=== PATIENT | female | born 1995 | race Caucasian/White ===

== ENCOUNTER 2018-04-08 16:05 | Emergency (ER) | payer SELFPAY ==
[~2018-04-08] VITALS: Ht 172.7 cm; Wt 65.8 kg
[2018-04-08 16:05] VITALS: BP 101/60
[~2018-04-08 16:05] MED LIST: ALPR1TAB2 PO; BUPR75TA5 PO
--- NOTE | 2018-04-08 16:25 | PHYS DOC ---
Past History Past Medical History: Anxiety Past Surgical History: No Surgical History Alcohol Use: Rarely Drug Use: None Adult General Chief Complaint Chief Complaint: Toothache HPI HPI 22-year-old female presents with swollen left side of her face. The patient has had a known cracked tooth in the left lower quadrant more than a year. Yesterday , the area began to bother her more. When she woke up this morning, left lower face had swollen significantly. She has increased tenderness to her gums in that area. She denies fever or chills. He does not currently have dental insurance. Review of Systems Review of Systems Constitutional: Denies fever or chills [] Eyes: Denies change in visual acuity, redness, or eye pain [] HENT: Left-sided dental pain[] Respiratory: Denies cough or shortness of breath [] Cardiovascular: No additional information not addressed in HPI [] GI: Denies abdominal pain, nausea, vomiting, bloody stools or diarrhea [] : Denies dysuria or hematuria [] Musculoskeletal: Denies back pain or joint pain [] Integument: Denies rash or skin lesions [] Neurologic: Denies headache, focal weakness or sensory changes [] Endocrine: Denies polyuria or polydipsia [] All other systems were reviewed and found to be within normal limits, except as documented in this note. Allergies Allergies Allergies Coded Allergies Type Severity Reaction Last Updated Verified No Known Drug Allergies 11/20/16 No Physical Exam Physical Exam Constitutional: Well developed, well nourished, no acute distress, non-toxic appearance. [] HENT: Normocephalic, atraumatic, bilateral external ears normal, oropharynx moist, no oral exudates, nose normal. Erythema of the left lower gums and cheek. No obvious area of fluctuance to be drained. [] Eyes: PERRLA, EOMI, conjunctiva normal, no discharge. [] Neck: Normal range of motion, no tenderness, supple, no stridor. [] Cardiovascular:Heart rate regular rhythm, no murmur [] Lungs & Thorax: Bilateral breath sounds clear to auscultation [] Abdomen: Bowel sounds normal, soft, no tenderness, no masses, no pulsatile masses. [] Skin: Warm, dry, no erythema, no rash. [] Back: No tenderness, no CVA tenderness. [] Extremities: No tenderness, no cyanosis, no clubbing, ROM intact, no edema. [] Neurologic: Alert and oriented X 3, normal motor function, normal sensory function, no focal deficits noted. [] Psychologic: Affect normal, judgement normal, mood normal. [] Current Patient Data Vital Signs Vital Signs Date Time Temp Pulse Resp B/P (MAP) Pulse Ox O2 Delivery O2 Flow Rate FiO2 04/08/18 16:05 97.5 77 18 100 EKG EKG [] Radiology/Procedures Radiology/Procedures [] Course & Med Decision Making Course & Med Decision Making Pertinent Labs and Imaging studies reviewed. (See chart for details) The patient has an infected tooth. I advised that she make an appointment as soon as possible to have her move as this is the only definitive treatment. I will give her clindamycin for 1 week. [] Dragon Disclaimer Dragon Disclaimer This electronic medical record was generated, in whole or in part, using a voice recognition dictation system. Departure Departure: Referrals: MARIBEL BONILLA MD (PCP) SAE AGARWAL DO Apr 08, 2018 16:25
[2018-04-08] MEDS ORDERED: CLIN300C8 PO (16:27)
== END 2018-04-08 16:30 | disposition home or self-care (01) ==
LOC: ER 16:05
DX: K04.7 Periapical abscess without sinus (principal); F41.9 Anxiety disorder, unspecified
CPT/HCPCS: 99283

== ENCOUNTER 2019-07-29 10:28 | Emergency (ER) | payer SELFPAY ==
[~2019-07-29] VITALS: Ht 172.7 cm; Wt 68.0 kg
[~2019-07-29 10:28] MED LIST changes: +CLIN300C8 PO
[2019-07-29] MEDS ORDERED: IV NORMAL SALINE 1,000ML 1,000 ML IV ONE (10:45)
--- NOTE | 2019-07-29 11:06 | RAD ---
CT HEAD WO CONTRAST Date: 07/29/2019 10:40 AM Clinical Indication: Altered mental status, history of seizure Comparison: 11/20/2016. Technique: 5 mm axial tomographic images were obtained of the head without contrast. These were viewed on brain and bone windows. One or more of the following dose reduction techniques were utilized: Automated exposure control (AEC), Adjustment of mA and/or kV according to patient size, Use of iterative reconstruction technique such as ASiR, CT scan done according to ALARA and image gently/image wisely Findings: The brain parenchyma is normal in attenuation. No intra- or extra-axial mass or fluid collection. No acute hemorrhage. The ventricles are normal in size, shape, and morphology. The faustin-white matter junction is normal. The subarachnoid cisterns are patent. The visualized paranasal sinuses are normal. The visualized portions of the orbits and globes are normal. The mastoid air cells are clear. The oil pipeline dispatcher topogram shows no lytic lesion or fracture. Impression: No acute intracranial process. Electronically signed by: Prashant Garcia MD (07/29/2019 11:03 AM) [facility]
[2019-07-29 11:07] VITALS: BP 157/87
[2019-07-29 11:12] LABS: BASO % 0 % (0-3); EOS % 1 % (0-3); HEMATOCRIT 39.7 % (36.0-47.0); HEMOGLOBIN 13.4 g/dL (12.0-15.5); LYMPH # 1.8 x10^3/uL (1.0-4.8); LYMPH % 27 % (24-48); MEAN CORPUSCULAR HEMOGLOBIN 30 pg (25-35); MEAN CORPUSCULAR HGB CONC 34 g/dL (31-37); MEAN CORPUSCULAR VOLUME 90 fL (79-100); MONO # 0.5 x10^3/uL (0.0-1.1); MONO % 7 % (0-9); NEUT # 4.4 x10^3uL (1.8-7.7); NEUT % 66 % (31-73); PLATELET COUNT 236 x10^3/uL (140-400); RED BLOOD COUNT 4.43 x10^6/uL (3.50-5.40); WHITE BLOOD COUNT 6.7 x10^3/uL (4.0-11.0)
[2019-07-29 11:20] LABS: ALBUMIN 3.5 g/dL (3.4-5.0); ALBUMIN/GLOBULIN RATIO 0.9 (1.0-1.7); CREATININE 0.7 mg/dL (0.6-1.0); GFR 101.1; POTASSIUM 3.7 mmol/L (3.5-5.1); TOTAL BILIRUBIN 0.3 mg/dL (0.2-1.0); TOTAL PROTEIN 7.2 g/dL (6.4-8.2)
[2019-07-29 11:24] LABS: BARBITURATES NEG (NEG); BENZODIAZEPINES NEG (NEG); CANNABINOIDS POS (NEG); COCAINE NEG (NEG); METHADONE NEG (NEG); OPIATES NEG (NEG); PHENCYCLIDINE NEG (NEG)
[2019-07-29 11:25] LABS: AMPHETAMINE/METHAMPHETAMINE POS (NEG)
[2019-07-29 11:54] LABS: BACTERIA,URINE 0 /HPF (0-FEW); BILIRUBIN,URINE NEG (NEG); CLARITY,URINE HAZY; COLOR,URINE AMBER; GLUCOSE,URINE NEG (NEG); NITRITE,URINE NEG (NEG); RBC,URINE 0 /HPF (0-2); SQUAMOUS EPITHELIAL CELL,UR OCC /LPF; UROBILINOGEN,URINE 0.2 mg/dL (0.2 mg/dL); WBC,URINE 0 /HPF (0-4)
[2019-07-29 11:55] LABS: AMORPHOUS SEDIMENT,UR PRESENT /HPF
--- NOTE | 2019-07-29 15:16 | PHYS DOC ---
Past History Past Medical History: Anxiety Past Surgical History: No Surgical History Alcohol Use: Rarely Drug Use: None Adult General Chief Complaint Chief Complaint: ANXIETY/PANIC ATTACK HPI HPI Patient is a 24-year-old female presenting with anxiety. She was with her acquaintances I believe a sister and [id number] she was outside apparently smoking cigarettes according to their report she denies drug use to me began to have acute anxiety was hyperventilating and saying help me help me they thought she might be having a stroke so they brought her to the ER for evaluation. They were able to calm her down before she came here. Review of Systems Review of Systems Constitutional: Denies fever or chills [] Eyes: Denies change in visual acuity, redness, or eye pain [] HENT: Denies nasal congestion or sore throat [] Respiratory: Denies cough or shortness of breath [] Cardiovascular: No additional information not addressed in HPI [] GI: Denies abdominal pain, nausea, vomiting, bloody stools or diarrhea [] : Denies dysuria or hematuria [] All other systems were reviewed and found to be within normal limits, except as documented in this note. Current Medications Current Medications Current Medications Medications (Trade) Dose Ordered Sig/Marcy Start Time Stop Time Status Last Admin Dose Admin Lorazepam (Ativan Inj) 1 mg 1X ONCE 07/29/19 11:15 07/29/19 11:16 DC 07/29/19 11:00 1 MG Sodium Chloride 1,000 ml @ 1,000 mls/hr 1X ONCE 07/29/19 10:45 07/29/19 11:44 DC 07/29/19 11:00 1,000 MLS/HR Allergies Allergies Allergies Coded Allergies Type Severity Reaction Last Updated Verified No Known Drug Allergies 07/29/19 No Physical Exam Physical Exam Constitutional: Well developed, well nourished, mild distress HENT: Normocephalic, atraumatic, bilateral external ears normal, oropharynx moist, no oral exudates, nose normal. [] Eyes: PERRLA, EOMI, conjunctiva normal, no discharge. [] Neck: Normal range of motion, no tenderness, supple, no stridor. [] Cardiovascular: Tachycardia and no murmur Lungs & Thorax: Bilateral breath sounds clear to auscultation [] Abdomen: Bowel sounds normal, soft, no tenderness, no masses, no pulsatile masses. [] Skin: Multiple scabs and rashes throughout the skin Back: No tenderness, no CVA tenderness. [] Extremities: No tenderness, no cyanosis, no clubbing, ROM intact, no edema. [] Neurologic: Alert and oriented X 3, normal motor function, normal sensory f unction, no focal deficits noted. []Speech is normal Psychologic: Anxiety and hyper psychomotor agitation were noted Current Patient Data Vital Signs Vital Signs Date Time Temp Pulse Resp B/P (MAP) Pulse Ox O2 Delivery O2 Flow Rate FiO2 07/29/19 11:07 115 18 157/87 (110) 100 Room Air 07/29/19 10:40 98.7 Lab Results Laboratory Tests Test 07/29/19 10:34 07/29/19 10:48 07/29/19 10:59 Glucose (Fingerstick) 102 mg/dL (70-99) H White Blood Count 6.7 x10^3/uL (4.0-11.0) Red Blood Count 4.43 x10^6/uL (3.50-5.40) Hemoglobin 13.4 g/dL (12.0-15.5) Hematocrit 39.7 % (36.0-47.0) Mean Corpuscular Volume 90 fL (79-100) Mean Corpuscular Hemoglobin 30 pg (25-35) Mean Corpuscular Hemoglobin Concent 34 g/dL (31-37) Red Cell Distribution Width 13.0 % (11.5-14.5) Platelet Count 236 x10^3/uL (140-400) Neutrophils (%) (Auto) 66 % (31-73) Lymphocytes (%) (Auto) 27 % (24-48) Monocytes (%) (Auto) 7 % (0-9) Eosinophils (%) (Auto) 1 % (0-3) Basophils (%) (Auto) 0 % (0-3) Neutrophils # (Auto) 4.4 x10^3uL (1.8-7.7) Lymphocytes # (Auto) 1.8 x10^3/uL (1.0-4.8) Monocytes # (Auto) 0.5 x10^3/uL (0.0-1.1) Eosinophils # (Auto) 0.0 x10^3/uL (0.0-0.7) Basophils # (Auto) 0.0 x10^3/uL (0.0-0.2) Maternal Serum HCG Beta Subunit < 1 mIU/mL (0-6) Sodium Level 138 mmol/L (136-145) Potassium Level 3.7 mmol/L (3.5-5.1) Chloride Level 102 mmol/L (98-107) Carbon Dioxide Level 28 mmol/L (21-32) Anion Gap 8 (6-14) Blood Urea Nitrogen 8 mg/dL (7-20) Creatinine 0.7 mg/dL (0.6-1.0) Estimated GFR (Cockcroft-Gault) 101.1 BUN/Creatinine Ratio 11 (6-20) Glucose Level 123 mg/dL (70-99) H Calcium Level 9.0 mg/dL (8.5-10.1) Total Bilirubin 0.3 mg/dL (0.2-1.0) Aspartate Amino Transferase (AST) 49 U/L (15-37) H Alanine Aminotransferase (ALT) 71 U/L (14-59) H Alkaline Phosphatase 85 U/L (46-116) Total Protein 7.2 g/dL (6.4-8.2) Albumin 3.5 g/dL (3.4-5.0) Albumin/Globulin Ratio 0.9 (1.0-1.7) L Ethyl Alcohol Level < 10 mg/dL (0-10) Urine Collection Type Unknown Urine Color Francia Urine Clarity Hazy Urine pH 6.0 Urine Specific Mullin 1.025 Urine Protein 100 mg/dl (NEG-TRACE) Urine Glucose (UA) Neg mg/dL (NEG) Urine Ketones (Stick) Neg mg/dL (NEG) Urine Blood Neg (NEG) Urine Nitrite Neg (NEG) Urine Bilirubin Neg (NEG) Urine Urobilinogen Dipstick 0.2 mg/dL (0.2 mg/dL) Urine Leukocyte Esterase Neg (NEG) Urine RBC 0 /HPF (0-2) Urine WBC 0 /HPF (0-4) Urine Squamous Epithelial Cells Occ /LPF Urine Amorphous Sediment Present /HPF Urine Bacteria 0 /HPF (0-FEW) Urine Mucus Slight /LPF Urine Opiates Screen Neg (NEG) Urine Methadone Screen Neg (NEG) Urine Barbiturates Neg (NEG) Urine Phencyclidine Screen Neg (NEG) Urine Amphetamine/Methamphetamine Pos (NEG) Urine Benzodiazepines Screen Neg (NEG) Urine Cocaine Screen Neg (NEG) Urine Cannabinoids Screen Pos (NEG) Urine Ethyl Alcohol Neg (NEG) EKG EKG [] Radiology/Procedures Radiology/Procedures [] Impressions: Findings: The brain parenchyma is normal in attenuation. No intra- or extra-axial mass or fluid collection. No acute hemorrhage. The ventricles are normal in size, shape, and morphology. The faustin-white matter junction is normal. The subarachnoid cisterns are patent. The visualized paranasal sinuses are normal. The visualized portions of the orbits and globes are normal. The mastoid air cells are clear. The lead vulcanizing operator topogram shows no lytic lesion or fracture. Impression: No acute intracranial process. Electronically signed by: Prashant Garcia MD (07/29/2019 11:03 AM) [facility] Course & Med Decision Making Course & Med Decision Making Pertinent Labs and Imaging studies reviewed. (See chart for details) []24-year-old female presenting with most likely an anxiety attack I think all of her symptoms are related to methamphetamine. She did appear to be quite anxious in the emergency room she had tachycardia that improved with IV fluids and Ativan she had clear lungs she was feeling better after ER treatment. Discharged in stable condition no evidence of acute neurologic process nonfocal neuro examination noted. Labs were essentially unremarkable Dragon Disclaimer Dragon Disclaimer This electronic medical record was generated, in whole or in part, using a voice recognition dictation system. Departure Departure: Impression: Primary Impression: Anxiety Disposition: 01 HOME, SELF-CARE Condition: IMPROVED Patient Instructions: Anxiety and Panic Attacks, [id number] JOLYNN MACIAS MD Jul 29, 2019 15:16
== END 2019-07-29 12:31 | disposition home or self-care (01) ==
LOC: ER 10:28
DX: F41.9 Anxiety disorder, unspecified (principal)
CPT/HCPCS: 36415; 70450; 80053; 80307; 81001; 82947; 84702; 85025; 96374; 99285; G0480; J2060; J7030

== ENCOUNTER 2020-12-01 00:34 | Emergency (ER) | payer SELFPAY ==
[~2020-12-01] VITALS: Ht 172.7 cm; Wt 80.0 kg
[~2020-12-01 00:34] MED LIST changes: -CLIN300C8 PO; +CLIN300C9 PO
[2020-12-01] MEDS ORDERED: IV RINGERS SOLUTION,LACTATED 1,000 ML IV ONE ×2 (01:15→02:45)
--- NOTE | 2020-12-01 01:24 | PHYS DOC ---
Past History Past Medical History: Anxiety, Other Additional Past Medical Histor: DRUG ABUSE Past Surgical History: No Surgical History Alcohol Use: Rarely Drug Use: None Adult General Chief Complaint Chief Complaint: ALLERGIC REACTION HPI HPI Patient is a 25-year-old female, otherwise healthy who presents with a chief complaint of concern for allergic reaction. States she is on Suboxone and did some heroin about 5 hours ago. States that since then she has felt shaky and like her heart is racing. States she had felt like this before after doing heroin. States she is pretty sure it was heroin but is not 100% sure. States she did inject this in her forearm. Denies headache, changes in vision, chest pain, shortness of breath, abdominal pain, vomiting, dysuria, hematuria or blood in the stool. Denies any numbness/weakness/tingling. Denies any other alcohol or drug use. Or medication use. Denies any recent travel, known ill contacts, fevers, Covid/flu symptoms. Review of Systems Review of Systems Constitutional: Denies fever or chills [] Eyes: Denies change in visual acuity, redness, or eye pain [] HENT: Denies nasal congestion or sore throat [] Respiratory: Denies cough or shortness of breath [] Cardiovascular: No additional information not addressed in HPI [] GI: Denies abdominal pain, nausea, vomiting, bloody stools or diarrhea [] : Denies dysuria or hematuria [] Musculoskeletal: Denies back pain or joint pain [] Integument: Denies rash or skin lesions [] Neurologic: Denies headache, focal weakness or sensory changes [] Endocrine: Denies polyuria or polydipsia [] All other systems were reviewed and found to be within normal limits, except as documented in this note. Current Medications Current Medications Current Medications Medications (Trade) Dose Ordered Sig/Marcy Start Time Stop Time Status Last Admin Dose Admin Lactated Ringer's 1,000 ml @ 1,000 mls/hr 1X ONCE 12/01/20 01:15 12/01/20 02:14 UNV 12/01/20 01:11 1,000 MLS/HR Lorazepam (Ativan Inj) 2 mg 1X ONCE 12/01/20 01:15 12/01/20 01:16 UNV 12/01/20 01:11 2 MG Allergies Allergies Allergies Coded Allergies Type Severity Reaction Last Updated Verified No Known Drug Allergies 07/29/19 No Physical Exam Physical Exam Constitutional: Well developed, well nourished, no acute distress, non-toxic appearance. [] HENT: Normocephalic, atraumatic, bilateral external ears normal, oropharynx moist, no oral exudates, nose normal. [] Eyes: PERRLA, EOMI, conjunctiva normal, no discharge. [] Neck: Normal range of motion, no tenderness, supple, no stridor. [] Cardiovascular:Heart rate regular rhythm, no murmur [] Lungs & Thorax: Bilateral breath sounds clear to auscultation [] Abdomen: Bowel sounds normal, soft, no tenderness, no masses, no pulsatile masses. [] Skin: Warm, dry, no erythema, no rash. [] Back: No tenderness, no CVA tenderness. [] Extremities: No tenderness, no cyanosis, no clubbing, ROM intact, no edema. [] Neurologic: Alert and oriented X 3, normal motor function, normal sensory function, no focal deficits noted. [] Psychologic: Affect normal, judgement normal, mood normal. [] Current Patient Data Vital Signs Vital Signs Date Time Temp Pulse Resp B/P (MAP) Pulse Ox O2 Delivery O2 Flow Rate FiO2 12/01/20 01:01 98.3 139 32 134/113 (120) 99 Room Air Lab Results Laboratory Tests Test 12/01/20 00:55 POC Urine HCG, Qualitative hcg negative (Negative) EKG EKG Initial EKG with a rate of 138, QRS of 80, QTc of 421, no STEMI [] Radiology/Procedures Radiology/Procedures [] Heart Score HEART Score for Chest Pain: HEART Score for Chest Pain Response (Comments) Value History Slighlty/Non-Suspicious 0 ECG Nonspecific Repolarizatio 1 Age < 45 0 Risk Factors No Risk Factors 0 Troponin < Normal Limit 0 Total 1 Risk Factors: Risk Factors: DM, Current or recent (<one month) smoker, HTN, HLP, family history of CAD, obesity. Risk Scores: Risk Factors: DM, Current or recent (<one month) smoker, HTN, HLP, family history of CAD, obesity. Course & Med Decision Making Course & Med Decision Making Patient is a 25-year-old female who presents approximately 5 hours after using heroin with dry mouth and tachycardia Vital signs notable for tachycardia. Physical exam noted above. Patient placed on the monitor with IV access established and IV fluid given. Given benzodiazepine. Given Tylenol and ibuprofen. Offered patient urine drug screen, which she politely declined. POC cardiac ultrasound, showing good squeeze and no pericardial effusion. Tricuspid and mitral valves flipping appropriately with no obvious vegetations noted. D-dimer normal. EKG noted above with sinus tachycardia. Troponin normal. On reassessment patient was feeling better, and heart rate was down to approximately 105. Discussed all findings with patient and gave information on free clinics. Advised to call first thing Thursday morning to set up a follow-up as soon as possible. Gave strict return precautions to the ED. Advised on cessation of sm oking and substance use as this could make her very ill. Patient was grateful, verbalized understanding and agreed with plan of discharge. [] Dragon Disclaimer Dragon Disclaimer This electronic medical record was generated, in whole or in part, using a voice recognition dictation system. Departure Departure: Impression: Primary Impression: Adverse effect of substance Additional Impression: Tachycardia Disposition: 01 DC HOME SELF CARE/HOMELESS Condition: IMPROVED Referrals: PCP,ABBY (PCP) Patient Instructions: Substance Abuse-Brief, Supraventricular Tachycardia Additional Instructions: Please read all the attached information. Please continue to use your Suboxone as needed and please cease any other substance use as this could make you very ill. Please begin to eat a nutritious diet, at least 3 times a day and plenty of fluids as you appear to be slightly dehydrated here in the emergency departme . You are given contact information for local primary care physicians that except patients with no current insurance. Please call them first thing Thursday to discuss your ED visit, establish care and set up a follow-up as soon as possible. Please come back to the ED with new or concerning symptoms as discussed. Problem Qualifiers MICHELE ROSS MD Dec 01, 2020 01:24
[2020-12-01 01:38] LABS: CALCIUM 9.2 mg/dL (8.5-10.1); CREATININE 0.9 mg/dL (0.6-1.0); GFR 75.1; POTASSIUM 3.1 mmol/L (3.5-5.1)
[2020-12-01 01:43] LABS: ALBUMIN 3.7 g/dL (3.4-5.0); TOTAL BILIRUBIN 0.4 mg/dL (0.2-1.0); TOTAL PROTEIN 7.5 g/dL (6.4-8.2)
[2020-12-01 01:43] LABS: CLARITY,URINE CLEAR; COLOR,URINE STRAW; GLUCOSE,URINE NEG (NEG)
[2020-12-01 01:44] LABS: BACTERIA,URINE FEW /HPF (0-FEW); BILIRUBIN,URINE NEG (NEG); NITRITE,URINE NEG (NEG); RBC,URINE 0 /HPF (0-2); SQUAMOUS EPITHELIAL CELL,UR FEW /LPF; UROBILINOGEN,URINE 0.2 mg/dL (0.2 mg/dL); WBC,URINE RARE /HPF (0-4)
[2020-12-01 01:47] LABS: BASO % 1 % (0-3); EOS # 0.2 x10^3/uL (0.0-0.7); EOS % 2 % (0-3); HEMATOCRIT 40.4 % (36.0-47.0); HEMOGLOBIN 13.6 g/dL (12.0-15.5); LYMPH # 4.8 x10^3/uL (1.0-4.8); LYMPH % 59 % (24-48); MEAN CORPUSCULAR HEMOGLOBIN 30 pg (25-35); MEAN CORPUSCULAR HGB CONC 34 g/dL (31-37); MEAN CORPUSCULAR VOLUME 90 fL (79-100); MONO # 0.5 x10^3/uL (0.0-1.1); MONO % 7 % (0-9); NEUT # 2.6 x10^3uL (1.8-7.7); NEUT % 32 % (31-73); PLATELET COUNT 245 x10^3/uL (140-400); WHITE BLOOD COUNT 8.2 x10^3/uL (4.0-11.0)
[2020-12-01 02:43] LABS: % ATYL 1 % (0-0); % EOS 2 % (0-5); % LYMPHS 65 % (24-48); % MONOS 7 % (0-10); % SEGS 25 % (35-66)
[2020-12-01 02:44] LABS: PLT ESTIMATE ADEQUATE (ADEQUATE)
[2020-12-01] MEDS ORDERED: IBUPROFEN 600 MG TABLET. PO ONE (02:45)
[2020-12-01] MEDS ORDERED: ACETAMINOPHEN 500 MG TABLET PO ONE (02:45)
[2020-12-01 03:15] VITALS: BP 131/97
--- NOTE | 2020-12-01 06:16 | EKG ---
[address] [address] Test Date: 2020-12-01 Test Time: 00:52:31 Pat Name: LINDSEY ORELLANA Department: Room: Gender: F Health Education Assistant: : 1995 Requested By: MICHELE ROSS Order Number: [id number] Reading MD: Measurements Intervals [place] Rate: 138 P: -39 CT: 142 QRS: -4 QRSD: 80 T: 28 QT: 278 QTc: 421 Interpretive Statements SINUS TACHYCARDIA LEFTWARD AXIS OTHERWISE NORMAL ECG RI6.02 No previous ECG available for comparison
== END 2020-12-01 03:28 | disposition home or self-care (01) ==
LOC: ER 00:34
DX: R00.0 Tachycardia, unspecified (principal); T40.2X5A Adverse effect of other opioids, initial encounter; F41.9 Anxiety disorder, unspecified; Y92.89 Other specified places as the place of occurrence of the external cause
CPT/HCPCS: 36415; 80053; 81001; 81025; 84484; 85007; 85025; 85379; 93005; 96361; 96374; 99285; J2060; J7120

== ENCOUNTER 2020-12-05 10:09 | Emergency (ER) | payer SELFPAY ==
[~2020-12-05] VITALS: Ht 172.7 cm; Wt 80.0 kg
[2020-12-05 11:26] LABS: BARBITURATES NEG (NEG); BENZODIAZEPINES NEG (NEG); CANNABINOIDS POS (NEG); COCAINE NEG (NEG); METHADONE NEG (NEG); OPIATES NEG (NEG); PHENCYCLIDINE NEG (NEG)
[2020-12-05 11:28] LABS: AMPHETAMINE/METHAMPHETAMINE NEG (NEG)
[2020-12-05 12:09] LABS: BASO % 1 % (0-3); EOS # 0.2 x10^3/uL (0.0-0.7); EOS % 3 % (0-3); HEMATOCRIT 47.3 % (36.0-47.0); HEMOGLOBIN 15.8 g/dL (12.0-15.5); LYMPH # 3.1 x10^3/uL (1.0-4.8); LYMPH % 48 % (24-48); MEAN CORPUSCULAR HEMOGLOBIN 30 pg (25-35); MEAN CORPUSCULAR HGB CONC 33 g/dL (31-37); MEAN CORPUSCULAR VOLUME 91 fL (79-100); MONO # 0.6 x10^3/uL (0.0-1.1); MONO % 9 % (0-9); NEUT # 2.6 x10^3uL (1.8-7.7); NEUT % 40 % (31-73); PLATELET COUNT 264 x10^3/uL (140-400); RED BLOOD COUNT 5.22 x10^6/uL (3.50-5.40); RED CELL DISTRIBUTION WIDTH 12.8 % (11.5-14.5); WHITE BLOOD COUNT 6.4 x10^3/uL (4.0-11.0)
[2020-12-05 12:22] LABS: CALCIUM 9.9 mg/dL (8.5-10.1); CREATININE 0.7 mg/dL (0.6-1.0); GFR 100.4; POTASSIUM 4.2 mmol/L (3.5-5.1)
--- NOTE | 2020-12-05 12:26 | RAD ---
CHEST PA LATERAL Technique: PA and lateral views of the chest were obtained. Clinical History: cp Comparison: None. Findings: The heart and pulmonary vasculature appear within normal limits. The lungs are clear. The pleural margins are clear. Bones are unremarkable. No free air under the diaphragms. Impression: Normal 2 view chest.
--- NOTE | 2020-12-05 12:27 | EKG ---
[address] [address] Test Date: 2020-12-05 Test Time: 10:33:21 Pat Name: LINDSEY ORELLANA Department: Room: Gender: F Clinical Staff Pharmacist: : 1995 Requested By: SHELLY CEBALLOS Order Number: [id number] Reading MD: Measurements Intervals [place] Rate: 127 P: 27 VA: 146 QRS: 55 QRSD: 76 T: 40 QT: 294 QTc: 432 Interpretive Statements SINUS TACHYCARDIA OTHERWISE NORMAL ECG RI6.02 No previous ECG available for comparison
[2020-12-05 12:29] LABS: ALBUMIN 4.2 g/dL (3.4-5.0); ALBUMIN/GLOBULIN RATIO 0.9 (1.0-1.7); TOTAL BILIRUBIN 0.4 mg/dL (0.2-1.0); TOTAL PROTEIN 8.8 g/dL (6.4-8.2)
[2020-12-05 14:00] VITALS: BP 138/82
--- NOTE | 2020-12-05 14:59 | PHYS DOC ---
Past History Past Medical History: Anxiety, Other Additional Past Medical Histor: DRUG ABUSE Past Surgical History: No Surgical History Alcohol Use: Rarely Drug Use: None (IVDU, heroin 1 wk ago) General Adult EDM: Chief Complaint: ANXIETY/PANIC ATTACK HPI: HPI: Patient is a [age] year old [sex] who presents with [] Review of Systems: Review of Systems: Constitutional: Denies fever or chills Eyes: Denies change in visual acuity HENT: Denies nasal congestion or sore throat Respiratory: Denies cough or shortness of breath Cardiovascular: Denies chest pain or edema GI: Denies abdominal pain, nausea, vomiting, bloody stools or diarrhea : Denies dysuria Musculoskeletal: Denies back pain or joint pain Integument: Denies rash Neurologic: Denies headache, focal weakness or sensory changes Endocrine: Denies polyuria or polydipsia Lymphatic: Denies swollen glands Psychiatric: Denies depression or anxiety Allergies: Allergies: Allergies Coded Allergies Type Severity Reaction Last Updated Verified No Known Drug Allergies 12/05/20 No Physical Exam: PE: Constitutional: Well developed, well nourished, no acute distress, non-toxic appearance. [] HENT: Normocephalic, atraumatic, bilateral external ears normal, oropharynx moist, no oral exudates, nose normal. [] Eyes: PERRLA, EOMI, conjunctiva normal, no discharge. [] Neck: Normal range of motion, no tenderness, supple, no stridor. [] Cardiovascular:Heart rate regular rhythm, no murmur [] Lungs & Thorax: Bilateral breath sounds clear to auscultation [] Abdomen: Bowel sounds normal, soft, no tenderness, no masses, no pulsatile masses. [] Skin: Warm, dry, no erythema, no rash. [] Back: No tenderness, no CVA tenderness. [] Extremities: No tenderness, no cyanosis, no clubbing, ROM intact, no edema. [] Neurologic: Alert and oriented X 3, normal motor function, normal sensory function, no focal deficits noted. [] Psychologic: Affect normal, judgement normal, mood normal. [] Current Patient Data: Labs: Laboratory Tests Test 12/05/20 10:50 12/05/20 11:30 Urine Opiates Screen Neg (NEG) Urine Methadone Screen Neg (NEG) Urine Barbiturates Neg (NEG) Urine Phencyclidine Screen Neg (NEG) Urine Amphetamine/Methamphetamine Neg (NEG) Urine Benzodiazepines Screen Neg (NEG) Urine Cocaine Screen Neg (NEG) Urine Cannabinoids Screen Pos (NEG) Urine Ethyl Alcohol Neg (NEG) White Blood Count 6.4 x10^3/uL (4.0-11.0) Red Blood Count 5.22 x10^6/uL (3.50-5.40) Hemoglobin 15.8 g/dL (12.0-15.5) H Hematocrit 47.3 % (36.0-47.0) H Mean Corpuscular Volume 91 fL (79-100) Mean Corpuscular Hemoglobin 30 pg (25-35) Mean Corpuscular Hemoglobin Concent 33 g/dL (31-37) Red Cell Distribution Width 12.8 % (11.5-14.5) Platelet Count 264 x10^3/uL (140-400) Neutrophils (%) (Auto) 40 % (31-73) Lymphocytes (%) (Auto) 48 % (24-48) Monocytes (%) (Auto) 9 % (0-9) Eosinophils (%) (Auto) 3 % (0-3) Basophils (%) (Auto) 1 % (0-3) Neutrophils # (Auto) 2.6 x10^3uL (1.8-7.7) Lymphocytes # (Auto) 3.1 x10^3/uL (1.0-4.8) Monocytes # (Auto) 0.6 x10^3/uL (0.0-1.1) Eosinophils # (Auto) 0.2 x10^3/uL (0.0-0.7) Basophils # (Auto) 0.0 x10^3/uL (0.0-0.2) Sodium Level 138 mmol/L (136-145) Potassium Level 4.2 mmol/L (3.5-5.1) Chloride Level 103 mmol/L (98-107) Carbon Dioxide Level 25 mmol/L (21-32) Anion Gap 10 (6-14) Blood Urea Nitrogen 8 mg/dL (7-20) Creatinine 0.7 mg/dL (0.6-1.0) Estimated GFR (Cockcroft-Gault) 100.4 BUN/Creatinine Ratio 11 (6-20) Glucose Level 89 mg/dL (70-99) Calcium Level 9.9 mg/dL (8.5-10.1) Total Bilirubin 0.4 mg/dL (0.2-1.0) Aspartate Amino Transferase (AST) 76 U/L (15-37) H Alanine Aminotransferase (ALT) 86 U/L (14-59) H Alkaline Phosphatase 115 U/L (46-116) Troponin I Quantitative < 0.017 ng/mL (0-0.055) Total Protein 8.8 g/dL (6.4-8.2) H Albumin 4.2 g/dL (3.4-5.0) Albumin/Globulin Ratio 0.9 (1.0-1.7) L Vital Signs: Vital Signs Date Time Temp Pulse Resp B/P (MAP) Pulse Ox O2 Delivery O2 Flow Rate FiO2 12/05/20 14:00 94 16 138/82 (100) 100 12/05/20 13:00 98.4 12/05/20 12:00 Room Air EKG: EKG: Sinus tachycardia 127 bpm, no axis deviation, normal intervals, no T wave inversions, no ST elevations or ST depressions Radiology/Procedures: Radiology/Procedures: IMAGING REPORT Signed PATIENT: LINDSEY ORELLANA ACCOUNT: [id number] : 1995 LOCATION: ER AGE: 25 SEX: F EXAM STATUS: REG ER ORD. PHYSICIAN: SHELLY CEBALLOS DO REASON: cp PROCEDURE: CHEST PA & LATERAL CHEST PA LATERAL Technique: PA and lateral views of the chest were obtained. Clinical History: Comparison: None. Findings: The heart and pulmonary vasculature appear within normal limits. The lungs are clear. The pleural margins are clear. Bones are unremarkable. No free air under the diaphragms. Impression: Normal 2 view chest. DICTATED AND SIGNED BY: EARLENE SCHWARTZ MD DATE: 12/05/20 1223 CC: PCP,NO; SHELLY CEBALLOS DO ~MTH0 0 I d/w Dr. Ng- no valvular vegetations on cardiac transthoracic echocardiogram Heart Score: HEART Score for Chest Pain: HEART Score for Chest Pain Response (Comments) Value History Slighlty/Non-Suspicious 0 ECG Normal 0 Age < 45 0 Risk Factors No Risk Factors 0 Troponin < Normal Limit 0 Total 0 Risk Factors: Risk Factors: DM, Current or recent (<one month) smoker, HTN, HLP, family history of CAD, obesity. Risk Scores: Score 0 - 3: 2.5% MACE over next 6 weeks - Discharge Home Score 4 - 6: 20.3% MACE over next 6 weeks - Admit for Clinical Observation Score 7 - 10: 72.7% MACE over next 6 weeks - Early Invasive Strategies Course & Med Decision Making: Course & Med Decision Making Pertinent Labs and Imaging studies reviewed. (See chart for details) Concern for palpitations in the setting of thc use (meth positive a few days ago) in a very anxious pt - no reported dyspnea, leg swelling, surgeries, control or pregnancies. Labs show slightly worsening chronic transaminitis. Troponin negative. Tachycardia is resolved and patient is now calm and asymptomatic. Will discharge home with strict ED return precautions were given for []. Encouraged urgent outpatient follow-up with PMD and cardiology as an outpatient. Life-threatening processes were considered but are low suspicion at this time, given history, physical exam and ED workup. Pt was educated on all prescription medications and adverse effects. All patient's questions were answered and pt was stable at time of discharge. Life/limb-threatening differential includes but is not limited to, acute myocardial infarction, aortic dissection, congestive heart failure, esophageal injury including rupture, surgical abdomen, arrhythmia, cardiomyopathy, myocarditis, pericarditis, peptic ulcer disease, pneumomediastinum, pneumonia, pneumothorax, pulmonary embolus, unstable angina, rib fracture, contusion, pericardial tamponade or effusion, traumatic injury including mediastinal hemorrhage or hematoma, or pulmonary contusion. I spoken with the patient and her caregivers. I explained the patient's condition, diagnoses and treatment plan based on the information available to me at this time. I have answered the patient and her caregiver's questions and ad dressed any concerns. The patient and her caregivers have a good understanding of patient's diagnosis, condition and treatment plan as can be expected at this point. Vital signs have been stable. Patient's condition is stable and appropriate for discharge from the emergency department. Patient will pursue further outpatient evaluation with primary care physician or other designated or consulting physician as outlined in the discharge instructions. The patient and/or caregivers are agreeable to this plan of care and follow-up instructions have been explained in detail. The patient and/or caregivers have received these instructions in written form and have expressed an understanding of the discharge instructions. The patient and/or caregivers are aware that any significant change of condition or worsening of symptoms should prompt immediate return to this or the closest emergency department or call to 911Marly Segura Disclaimer: Imelda Disclaimer: This electronic medical record was generated, in whole or in part, using a voice recognition dictation system. Departure Departure: Impression: Primary Impression: Palpitations Additional Impressions: Transaminitis Marijuana use Disposition: 01 DC HOME SELF CARE/HOMELESS Condition: STABLE Referrals: PCP,NO (PCP) FOLLOW UP WITH FAMILY MEDICINE: Complete [facility], [facility] [address] [place] [address] OR [facility] [address] [place] [address], [facility] Instructions: Marijuana Abuse-Brief, Palpitations Additional Instructions: FOLLOW UP WITH CARDIOLOGY: [facility] [address] [place] [address] [facility] [address] [place] [address] EMERGENCY DEPARTMENT GENERAL DISCHARGE INSTRUCTIONS Thank you for coming to [facility] (ED) today and trusting us with you care. We trust that you had a positivie experience in our Emergency Department. If you wish to speak to the department management, you may call the director at [phone]. YOUR FOLLOW UP INSTRUCTIONS ARE FOLLOWS: 1. Do you have a private Doctor? If you do not have a private doctor, please ask for a resource list of physicians or clinics that may be able to assist you with follow up care. 2. The Emergency Physician has interpreted your x-rays. The X-Ray specialist will also review them. If there is a change in the findings, you will be notified in 48 hours when at all possible. 3. A lab test or culture has been done, your results will be reviewed and you will be notified if you need a change in treatment. ADDITIONAL INSTRUCTIONS AND INFORMATION: 1. Your care today has been supervised by a physician who is specially trained in emergency care. Many problems require more than one evaluation for a complete diagnosis and treatment. We recommend that you schedule your follow up appointment as recommended to ensure complete treatment of you illness or injury. If you are unable to obtain follow up care and continue to have a problem, or if your condition worsens, we recommend that you return to the ED. 2. We are not able to safely determine your condition over the phone nor are we able to give sound medical advice over the phone. For these safety reasons, if you call for medical advice we will ask you to come to the ED for further evaluation. 3. If you have any questions regarding these discharge instructions please call the ED at [phone]. SAFETY INFORMATION: In the interest of safety, wellness, and injury prevention; we encourage you to wear your sealbelt, if you smoke; quite smoking, and we encourage family to use a protective helmet for bicycling and other sporting events that present an increased risk for head injury. IF YOUR SYMPTOMS WORSEN OR NEW SYMPTOMS DEVELOP, OR YOU HAVE CONCERNS ABOUT YOUR CONDITION; OR IF YOUR CONDITION WORSENS WHILE YOU ARE WAITING FOR YOUR FOLLOW UP APPOINTMENT; EITHER CONTACT YOUR PRIMARY CARE DOCTOR, THE PHYSICIAN WHOSE NAME AND NUMBER YOU WERE GIVEN, OR RETURN TO THE ED IMMEDIATELY. SHELLY ROWLAND DO Dec 05, 2020 14:59
--- NOTE | 2020-12-05 16:28 | CARD ---
MR#: [id number] Date of Study: 12/05/2020 Ordering Physician: SHELLY CEBALLOS, Referring Physician: SHELLY CEBALLOS, Tech: Luci Moreno ALBINO APPROVED REPORT EXAM: Two-dimensional and M-mode echocardiogram with Doppler and color Doppler. Other Information Quality : Good INDICATION R/O Endocarditis 2D DIMENSIONS RVDd2.9 (2.9-3.5cm)Left Atrium(2D)3.2 (1.6-4.0cm) IVSd0.7 (0.7-1.1cm)Aortic Root(2D)2.7 (2.0-3.7cm) LVDd5.4 (3.9-5.9cm)LVOT Diameter2.1 (1.8-2.4cm) PWd0.7 (0.7-1.1cm)LVDs4.1 (2.5-4.0cm) FS (%) 30.0 %LVEF(%)60.0 (>50%) Aortic Valve AO Peak GR.8.0mmHgAO Mean GR.5mmHg MER (VTI)2.90cm2 LEFT VENTRICLE The left ventricle is normal size. There is normal left ventricular wall thickness. Left ventricle sy stolic function is low normal. The Ejection Fraction is 50-55%. There is normal LV segmental wall mot ion. The left ventricular diastolic function and filling is normal for age. RIGHT VENTRICLE The right ventricle is normal size. The right ventricular systolic function is normal. ATRIA The left atrium size is normal. The right atrium size is normal. The atrial septum is aneurysmal. No clear evidence of PFO noted. AORTIC VALVE The aortic valve is normal in structure and function. Doppler and Color Flow revealed no significant aortic regurgitation. There is no significant aortic valvular stenosis. MITRAL VALVE The mitral valve is normal in structure and function. There is no evidence of mitral valve prolapse. There is no mitral valve stenosis. Doppler and Color Flow revealed no mitral valve regurgitation note d. TRICUSPID VALVE The tricuspid valve is normal in structure and function. Doppler and Color Flow revealed trace tricus pid regurgitation. There is no tricuspid valve stenosis. PULMONIC VALVE Doppler and Color Flow revealed trace pulmonic valvular regurgitation. There is no pulmonic valvular stenosis. GREAT VESSELS The aortic root is normal in size. The ascending aorta is normal in size. The IVC is normal in size a nd collapses >50% with inspiration. PERICARDIAL EFFUSION There is no evidence of significant pericardial effusion. Critical Notification Critical Value: No <Conclusion> Left ventricle systolic function is low normal. The Ejection Fraction is 50-55%. There is normal LV segmental wall motion. The atrial septum is aneurysmal. No clear evidence of PFO noted. Signed by : Ryland Aly, Electronically Approved : 12/05/2020 16:27:58
== END 2020-12-05 15:00 | disposition home or self-care (01) ==
LOC: ER 10:09
DX: R00.2 Palpitations (principal); R74.01 Elevation of levels of liver transaminase levels; F12.90 Cannabis use, unspecified, uncomplicated; F41.9 Anxiety disorder, unspecified
CPT/HCPCS: 36415; 71046; 80053; 80307; 81025; 84484; 85025; 93005; 93306; 99285-25

== ENCOUNTER 2020-12-16 21:59 | Emergency (ER) | payer SELFPAY ==
[~2020-12-16] VITALS: Ht 172.7 cm; Wt 80.0 kg
[2020-12-16] MEDS ORDERED: DIAZ10TA4 PO (22:28)
--- NOTE | 2020-12-16 22:29 | PHYS DOC ---
Past History Past Medical History: Anxiety, Other Additional Past Medical Histor: DRUG ABUSE Past Surgical History: No Surgical History Alcohol Use: Rarely Drug Use: None Adult General Chief Complaint Chief Complaint: ANXIETY/PANIC ATTACK HPI HPI Patient is a 25-year-old female with a past medical history of anxiety and panic attacks who presents with a panic attack. Patient states that over the last couple of months she has had increased frequency of her panic attacks. States she is having 2 or 3 months. States that just before coming to the emergency department she was just sitting there, got scared, felt like she was going to , felt like she just wanted to run away and like her heart was racing fast. States she does not have a primary care physician right now because she is waiting on her insurance. Denies any recent traumas, illnesses, fevers, ill contacts. Denies any alcohol, or drug use. Denies any medical problems at all. Denies any lightheadedness, chest pain, shortness of breath, abdominal pain, nausea, vomiting, diarrhea, dysuria, hematuria or blood in the stool. States she is currently on her menstrual period. Review of Systems Review of Systems Review of systems otherwise unremarkable except noted in HPI Allergies Allergies Allergies Coded Allergies Type Severity Reaction Last Updated Verified No Known Drug Allergies 12/05/20 No Physical Exam Physical Exam Constitutional: Well developed, well nourished, no acute distress, non-toxic appearance. [] HENT: Normocephalic, atraumatic, bilateral external ears normal, oropharynx moist, no oral exudates, nose normal. [] Eyes: conjunctiva normal, no discharge. [] Neck: Normal range of motion, no tenderness, supple, no stridor. [] Cardiovascular:Heart rate regular rhythm, no murmur [] Lungs & Thorax: Bilateral breath sounds clear to auscultation [] Abdomen: soft, no tenderness, no masses, no pulsatile masses. [] Skin: Warm, dry, no erythema, no rash. [] Extremities: No tenderness, no cyanosis, no clubbing, ROM intact, no edema. [] Neurologic: Alert and oriented X 3, normal motor function, normal sensory function, no focal deficits noted. [] Psychologic: Patient alert and oriented and cooperative, pleasant but does appear anxious. Denies SI, HI or hallucinations. States that her anxiety/panic attacks usually last somewhere between a half an hour in an hour. States that she is start to feel better here in the emergency department. EKG EKG [] Radiology/Procedures Radiology/Procedures [] Heart Score C/O Chest Pain: No Risk Factors: Risk Factors: DM, Current or recent (<one month) smoker, HTN, HLP, family history of CAD, obesity. Risk Scores: Risk Factors: DM, Current or recent (<one month) smoker, HTN, HLP, family history of CAD, obesity. Course & Med Decision Making Course & Med Decision Making Patient is a 25-year-old female with a past medical history of anxiety and panic attacks who presents with an anxiety attack Vital signs not concerning. Physical exam noted above EKG noted above with no STEMI. Patient alert and oriented in no acute distress. No focal neurologic deficits. Patient states she is feeling better here in the emergency department. Given diazepam in the emergency department. Discussed the differential diagnosis and treatment for anxiety including cognitive behavioral therapy plus or minus medications. Gave patient a short course of rescue medications. Advised only to use them in rescue situations and not to take them every day. Gave strict return precautions to the ED. Family grateful, verbalized understanding and agreed with plan of discharge. [] Dragon Disclaimer Dragon Disclaimer This electronic medical record was generated, in whole or in part, using a voice recognition dictation system. Departure Departure: Impression: Primary Impression: Panic attack Disposition: 01 DC HOME SELF CARE/HOMELESS Condition: GOOD Referrals: PCP,NO (PCP) KANCHAN GOFF MD Patient Instructions: Anxiety and Panic Attacks, [id number] Additional Instructions: Please read all the attached information. This would be good for your education but also reassure you about what is going on which could also help with your anxiety levels. You were given a short course of rescue medication, please only take as discussed in situations where you are having a panic attack. Please do not take these every day. Please remember these have a long half-life so this should give you 1 to 3 days of anxiety relief. As discussed if you begin to experience a panic attack please read read the attached information and remember that you do have a rescue medication there and try to breathe. Please come back to the emergency department with new or concerning symptoms. Scripts Diazepam (DIAZEPAM) 10 Mg Tablet 5 MG PO ONCE for panic attack for 6 Days, #6 TAB 0 Refills Prov: MICHELE ROSS MD 12/16/20 MICHELE ROSS MD Dec 16, 2020 22:28
[2020-12-16] MEDS ORDERED: diazePAM 5 MG TABLET. PO ONE (22:30)
[2020-12-16 23:05] VITALS: BP 134/65
--- NOTE | 2020-12-17 01:27 | EKG ---
[address] [address] Test Date: 2020-12-16 Test Time: 22:07:32 Pat Name: LINDSEY ORELLANA Department: Room: Gender: F [employer] [place] [employer]: : 1995 Requested By: MICHELE ROSS Order Number: [id number] Reading MD: Measurements Intervals [place] Rate: 94 P: 1 MT: 192 QRS: 34 QRSD: 82 T: 36 QT: 364 QTc: 455 Interpretive Statements SINUS RHYTHM NORMAL ECG RI6.02 No previous ECG available for comparison
== END 2020-12-16 23:04 | disposition home or self-care (01) ==
LOC: ER 21:59
DX: F41.0 Panic disorder [episodic paroxysmal anxiety] (principal)
CPT/HCPCS: 99283

== ENCOUNTER 2021-01-08 21:55 | Emergency (ER) | payer SELFPAY ==
[~2021-01-08] VITALS: Ht 172.7 cm; Wt 80.0 kg
[~2021-01-08 21:55] MED LIST changes: +DIAZ10TA4 PO
--- NOTE | 2021-01-08 22:39 | PHYS DOC ---
Past History Past Medical History: Anxiety, Other Additional Past Medical Histor: DRUG ABUSE Past Surgical History: No Surgical History Alcohol Use: Rarely Drug Use: None General Adult EDM: Chief Complaint: ANXIETY/PANIC ATTACK HPI: HPI: Patient is a 25-year-old female coming in for evaluation of twitching. Patient states she has a history of anxiety and is on Suboxone following heroin use. Patient states that she was falling asleep she had a twitching movement she describes as "flinching". States she has had occasional muscle spasms otherwise. Was started on clonidine and Seroquel for her anxiety and took her first dose this evening. She states she otherwise has been well and denies any fevers, cough, vomiting or diarrhea, or changes in urination. Patient states that she has been eating and drinking well. Denies any substance abuse. 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 Review of Systems: Review of Systems: All other systems within normal limits except for as noted in the HPI Allergies: Allergies: Allergies Coded Allergies Type Severity Reaction Last Updated Verified No Known Drug Allergies 12/05/20 No Physical Exam: PE: Constitutional: Well developed, well nourished, no acute distress, non-toxic appearance. [] HENT: Normocephalic, atraumatic, bilateral external ears normal, nose normal. [] Eyes: PERRLA, conjunctiva normal, no discharge. [] Neck: No rigidity, supple, no stridor. [] Cardiovascular: Regular rate and rhythm, brisk cap refill [] Lungs & Thorax: Non labored symmetric respirations, no tachypnea or respiratory distress [] Abdomen: Soft, nondistended. Skin: Warm, dry, no erythema, no rash. [] Back: Unremarkable Extremities: No deformities, range of motion grossly intact, no lower extremity edema [] Neurologic: Alert and oriented X 3, no focal deficits noted. [] Psychologic: Affect normal, judgement normal, mood normal. [] EKG: EKG: Sinus rhythm, heart rate 81 bpm, no ST elevation or depression, no ectopy, borderline QTC. [] Radiology/Procedures: Radiology/Procedures: [] Heart Score: C/O Chest Pain: No Risk Factors: Risk Factors: DM, Current or recent (<one month) smoker, HTN, HLP, family history of CAD, obesity. Risk Scores: Score 0 - 3: 2.5% MACE over next 6 weeks - Discharge Home Score 4 - 6: 20.3% MACE over next 6 weeks - Admit for Clinical Observation Score 7 - 10: 72.7% MACE over next 6 weeks - Early Invasive Strategies Course & Med Decision Making: Course & Med Decision Making Vital signs stable, discussed discontinuing medications until she follows up with her primary care provider. Patient also states that she is taking about a quarter of the dose boxwith taking and has been "panicking" all day. Dragon Disclaimer: Dragon Disclaimer: This electronic medical record was generated, in whole or in part, using a voice recognition dictation system. Departure Departure: Impression: Primary Impression: Encounter for medical assessment Disposition: 01 DC HOME SELF CARE/HOMELESS Condition: STABLE Referrals: PCP,ABBY (PCP) Patient Instructions: Anxiety and Panic Attacks JENNIFER RIVER MD Jan 08, 2021 22:39
[2021-01-08 23:03] VITALS: BP 132/77
--- NOTE | 2021-01-09 06:26 | EKG ---
[address] [address] Test Date: 2021-01-08 Test Time: 22:42:12 Pat Name: LINDSEY ORELLANA Department: Room: Gender: F [employer]: [place] : 1995 Requested By: JENNIFER RIVER Order Number: [id number] Reading MD: Measurements Intervals [place] Rate: 81 P: 43 AK: 166 QRS: 54 QRSD: 78 T: 28 QT: 386 QTc: 449 Interpretive Statements SINUS RHYTHM NORMAL ECG RI6.02 No previous ECG available for comparison
== END 2021-01-08 23:14 | disposition home or self-care (01) ==
LOC: ER 21:55
DX: Z00.8 Encounter for other general examination (principal); F41.9 Anxiety disorder, unspecified
CPT/HCPCS: 93005; 99283

== ENCOUNTER 2021-01-14 14:24 | Emergency (ER) | payer SELFPAY ==
[~2021-01-14] VITALS: Ht 172.7 cm; Wt 80.0 kg
[2021-01-14 14:35] VITALS: BP 119/93
--- NOTE | 2021-01-14 16:37 | PHYS DOC ---
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 Patient states she is currently pain-free, states she has no physical symptoms at this time. Patient states when she does have pain it is a 10/10 on a 1-10 pain scale. Patient states she has not had any pain or discomfort today. Patient states she is currently taking Suboxone, has been free of heroin for the past 3 months. Patient states she does smoke cigarettes, does not drink alcohol or use any other illicit drugs. Patient denies nausea, vomiting, diarrhea, constipation, diaphoretic episodes, numbness or tingling to her extremities, denies visual deficits. She denies any other physical complaints or physical concerns. Review of Systems Review of Systems 14 body systems of review of systems have been reviewed. See HPI for pertinent positives and negative responses, otherwise all other systems are negative, nonpertinent or noncontributory. Allergies Allergies Allergies Coded Allergies Type Severity Reaction Last Updated Verified No Known Drug Allergies 12/05/20 No Physical Exam Physical Exam Constitutional: Well developed, well nourished, no acute distress, non-toxic appearance. 25-year-old female in no apparent distress. HENT: Normocephalic, atraumatic, bilateral external ears normal, oropharynx moist, no oral exudates, nose normal. Eyes: PERRLA, EOMI, conjunctiva normal, no discharge. Neck: Normal range of motion, no tenderness, supple, no stridor. Cardiovascular:Heart rate regular rhythm, no murmur, heart sounds S1-S2 auscultation. Lungs & Thorax: Bilateral breath sounds clear to auscultation all lung lombardi, no adventitious lung sounds appreciated. Abdomen: Bowel sounds normal, soft, no tenderness, no masses, no pulsatile mas ses. Skin: Warm, dry, no erythema, no rash. Back: No tenderness, no CVA tenderness. Extremities: No tenderness, no cyanosis, no clubbing, ROM intact, no edema. Neurologic: Alert and oriented X 3, normal motor function, normal sensory function, no focal deficits noted. Psychologic: Affect normal, judgement normal, mood normal. Current Patient Data Vital Signs Vital Signs Date Time Temp Pulse Resp B/P (MAP) Pulse Ox O2 Delivery O2 Flow Rate FiO2 01/14/21 14:35 99.5 22 119/93 (102) Room Air Lab Results Laboratory Tests Test 01/14/21 16:40 01/14/21 17:05 01/14/21 17:18 Urine Collection Type Unknown Urine Color Yellow Urine Clarity Clear Urine pH 6.5 Urine Specific Alto 1.010 Urine Protein Neg Urine Glucose (UA) Neg mg/dL Urine Ketones (Stick) Neg mg/dL Urine Blood Neg Urine Nitrite Neg Urine Bilirubin Neg Urine Urobilinogen Dipstick 0.2 mg/dL Urine Leukocyte Esterase Neg Urine RBC 0 /HPF Urine WBC 0 /HPF Urine Bacteria 0 /HPF Urine Opiates Screen Neg Urine Methadone Screen Neg Urine Barbiturates Neg Urine Phencyclidine Screen Neg Urine Amphetamine/Methamphetamine Neg Urine Benzodiazepines Screen Neg Urine Cocaine Screen Neg Urine Cannabinoids Screen Neg Urine Ethyl Alcohol Neg Bedside Urine HCG, Qualitative hcg negative White Blood Count 6.7 x10^3/uL Red Blood Count 4.32 x10^6/uL Hemoglobin 13.2 g/dL Hematocrit 38.9 % Mean Corpuscular Volume 90 fL Mean Corpuscular Hemoglobin 31 pg Mean Corpuscular Hemoglobin Concent 34 g/dL Red Cell Distribution Width 12.4 % Platelet Count 246 x10^3/uL Neutrophils (%) (Auto) 62 % Lymphocytes (%) (Auto) 31 % Monocytes (%) (Auto) 5 % Eosinophils (%) (Auto) 1 % Basophils (%) (Auto) 1 % Neutrophils # (Auto) 4.2 x10^3uL Lymphocytes # (Auto) 2.1 x10^3/uL Monocytes # (Auto) 0.4 x10^3/uL Eosinophils # (Auto) 0.1 x10^3/uL Basophils # (Auto) 0.0 x10^3/uL Prothrombin Time 9.8 SEC Prothromb Time International Ratio 0.9 Activated Partial Thromboplast Time 27 SEC D-Dimer (Sara) 0.24 mg/L Sodium Level 141 mmol/L Potassium Level 3.8 mmol/L Chloride Level 106 mmol/L Carbon Dioxide Level 24 mmol/L Anion Gap 11 Blood Urea Nitrogen 10 mg/dL Creatinine 0.6 mg/dL Estimated GFR (Cockcroft-Gault) 119.9 BUN/Creatinine Ratio 17 Glucose Level 106 mg/dL Calcium Level 8.6 mg/dL Magnesium Level 2.2 mg/dL Total Bilirubin 0.4 mg/dL Direct Bilirubin 0.2 mg/dL Aspartate Amino Transf (AST/SGOT) 54 U/L Alanine Aminotransferase (ALT/SGPT) 78 U/L Alkaline Phosphatase 89 U/L Creatine Kinase 49 U/L Creatine Kinase MB (Mass) 0.7 ng/mL Creatine Kinase MB Relative Index 1.4 % Troponin I Quantitative < 0.017 ng/mL [id number]-Hmq-[id number]-Type Natriuretic Peptide 77 pg/mL Total Protein 7.3 g/dL Albumin 3.8 g/dL Albumin/Globulin Ratio 1.1 Lipase 148 U/L EKG EKG EKG performed at 1429 by house respiratory therapy staff, shows a normal sinus rhythm without ectopy with a heart rate of 71 bpm, CT interval 0.158, QTc interval 0.448, no acute STEMI, no ACS, no acute ischemia appreciated, EKG interpreted by ED attending physician Dr. Nava. Radiology/Procedures Radiology/Procedures PATIENT: LINDSEY ORELLANA ACCOUNT: [id number] : 1995 LOCATION: ER AGE: 25 SEX: F EXAM STATUS: REG ER ORD. PHYSICIAN: TETE CARRILLO APRN REASON: CHEST PAIN PROCEDURE: CHEST PA & LATERAL Chest radiograph 01/14/2021 4:57 PM INDICATION: Chest pain COMPARISON: December 05, 2020 TECHNIQUE: Frontal and lateral views of the chest are provided. FINDINGS: The cardiomediastinal silhouette is within normal limits. There are no pleural effusions. There is no pulmonary vascular congestion. There is no pneumothorax. The lungs are clear. No significant osseous abnormality is identified. IMPRESSION: No acute cardiopulmonary process. Electronically signed by: Jorje Romero MD (01/14/2021 5:01 PM) [id number] DICTATED AND SIGNED BY: JORJE ROMERO MD DATE: 01/14/21 1700 CC: TETE CARRILLO APRN; PCP,NO ~MTH0 0 Heart Score C/O Chest Pain: Yes HEART Score for Chest Pain: HEART Score for Chest Pain Response (Comments) Value History Slighlty/Non-Suspicious 0 ECG Normal 0 Age < 45 0 Risk Factors 1 or 2 Risk Factors 1 Troponin < Normal Limit 0 Total 1 Risk Factors: Risk Factors: DM, Current or recent (<one month) smoker, HTN, HLP, family history of CAD, obesity. Risk Scores: Risk Factors: DM, Current or recent (<one month) smoker, HTN, HLP, family history of CAD, obesity. Course & Med Decision Making Course & Med Decision Making Pertinent Labs and Imaging studies reviewed. (See chart for details) 25-year-old female, vital signs reviewed, presents emergency department concerning for chest pain, fever and chills at home. Physical examination was unremarkable, patient was pain-free and symptom-free during physical examination. Related to patient's verbalized symptoms, a cardiopulmonary work- up was initiated. Patient's lab values were negative, D-dimer unremarkable, cardiac enzymes unrema rkable, the patient's HEART score equaled 1. This is unlikely a cardiorespiratory etiology. Will diagnosed with chest pain of unknown etiology. Will test for COVID-19 virus prior to discharge. Patient will be considered a PUI. Will give work excuse for tomorrow. Upon reevaluation of the patient, patient remained pain-free and symptom-free throughout ER stay. Patient is nontoxic in appearance. Patient gave verbal understanding of discharge home instructions, follow-up with primary care for ongoing symptoms, return to ER precautions or concerns, COVID- 19 virus precautions, patient had no further questions or concerns and was d ischarged home without incident. Dragon Disclaimer Dragon Disclaimer This electronic medical record was generated, in whole or in part, using a voice recognition dictation system. Departure Departure: Impression: Primary Impression: Chest pain of unknown etiology Additional Impression: Person under investigation for COVID-19 Disposition: 01 DC HOME SELF CARE/HOMELESS Condition: GOOD Referrals: PCP,NO (PCP) Additional Instructions: We have done an extensive evaluation on your heart and lungs, there were no concerning findings that would warrant an admission to the hospital or immediate treatment. We have tested you today for the COVID-19 virus, your results should be available after 48 hours. Please see your primary care doctor soon for ongoing symptoms. Return to the emergency department for worsening symptoms or other concerns. I have attached information about the COVID-19 virus to this document, please review. You have been tested for or diagnosed with COVID-19. It is an infection caused by a new type of coronavirus. COVID-19 will cause cold-like or mild flu symptoms in most. It can cause more severe symptoms like problems breathing in some. There is no treatment for COVID-19. The body will clear the infection over time. Self-care will help to ease discomfort. Steps to Take: Self-Care Rest as needed. Healthy habits may help you feel better. Steps include: Choose healthy foods including fruits and vegetables. Drink water throughout the day. Get plenty of sleep each night. If you smoke, try to quit. It may ease breathing. Avoid alcohol. Keep Others Healthy The virus can spread to others. Droplets are released every time you sneeze or cough. The droplets can get into the mouth, nose, or eyes of people near you and lead to infection. To lower the chances of spreading COVID-19 to others: Stay at home until your doctor has said it is safe to leave. If you tested positive this will mean staying isolated until both of the following are true: At least 7 days have passed since the start of illness. You are free of fever for at least 72 hours without the use of medicine. During this time: - Avoid public areas, events, or transportation. Do not return to work or school until your doctor has said it is safe to do so. - Call ahead if you need to go to a medical center. Let them know you may have COVID-19. It will help them guide you where to go. They may also ask you to wear a facemask when you come to the office. - If you call for emergency medical services, let them know you may have COVID- 19. While at home: - Try to avoid close contact with others. Stay about 6 feet away. - If possible, spend most of your time in a separate room from others. - Use a face mask if you will be in close contact with others such as sharing a room or vehicle. - Have someone wipe down common surfaces in the home. Use household crossing gateman every day on areas like doorknobs, counters, or sinks. - Cough or sneeze into a tissue. Throw the tissue away right after use. If a tissue is not available, cough or sneeze into your elbow. - Wash your hands often. Wash them after sneezing or coughing. Use soap and water and wash for at least 20 seconds. Alcohol based hand sweeper cleaner industrial can be used if soap and water is not available. - Do not prepare food for others. Avoid sharing personal items like forks, spoons, or toothbrushes. - Avoid close contact with pets while you are sick. There is no evidence of the virus passing to pets. This is a safety step until more is known about this virus. Isolation can be frustrating. Social interaction can help. Keep in touch with friends and family through phone and tech options. You can still interact with others in your home, just keep a safe distance of about 6 feet. Follow-up: Your doctors office will check in with you to see if there are any changes in your health. You may be asked to keep track of symptoms to share with them. They will also let you know when you are clear to be in public again. Problems to Look Out For: Contact your doctor if your recovery is not going as you expect. Get emergency care if you have problems such as: - Trouble breathing - Nonstop chest pain or pressure - Changes in awareness, confusion, or problems waking - Lips or face have bluish color - Worsening of symptoms If you think you have an emergency, call for emergency medical services right away. As taken from Pending sale to [facility] EMERGENCY DEPARTMENT GENERAL DISCHARGE INSTRUCTIONS Thank you for coming to [facility] (ED) today and trusting us with you care. We trust that you had a positivie experience in our Emergency Department. If you wish to speak to the department management, you may call the director at [phone]. YOUR FOLLOW UP INSTRUCTIONS ARE FOLLOWS: 1. Do you have a private Doctor? If you do not have a private doctor, please ask for a resource list of physicians or clinics that may be able to assist you with follow up care. 2. The Emergency Physician has interpreted your x-rays. The X-Ray specialist will also review them. If there is a change in the findings, you will be notified in 48 hours when at all possible. 3. A lab test or culture has been done, your results will be reviewed and you will be notified if you need a change in treatment. ADDITIONAL INSTRUCTIONS AND INFORMATION: 1. Your care today has been supervised by a physician who is specially trained in emergency care. Many problems require more than one evaluation for a complete diagnosis and treatment. We recommend that you schedule your follow up appointment as recommended to ensure complete treatment of you illness or injury. If you are unable to obtain follow up care and continue to have a problem, or if your condition worsens, we recommend that you return to the ED. 2. We are not able to safely determine your condition over the phone nor are we able to give sound medical advice over the phone. For these safety reasons, if you call for medical advice we will ask you to come to the ED for further evaluation. 3. If you have any questions regarding these discharge instructions please call the ED at [phone]. SAFETY INFORMATION: In the interest of safety, wellness, and injury prevention; we encourage you to wear your sealbelt, if you smoke; quite smoking, and we encourage family to use a protective helmet for bicycling and other sporting events that present an increased risk for head injury. IF YOUR SYMPTOMS WORSEN OR NEW SYMPTOMS DEVELOP, OR YOU HAVE CONCERNS ABOUT YOUR CONDITION; OR IF YOUR CONDITION WORSENS WHILE YOU ARE WAITING FOR YOUR FOLLOW UP APPOINTMENT; EITHER CONTACT YOUR PRIMARY CARE DOCTOR, THE PHYSICIAN WHOSE NAME AND NUMBER YOU WERE GIVEN, OR RETURN TO THE ED IMMEDIATELY. Problem Qualifiers TETE CARRILLO APRN Jan 14, 2021 16:37
--- NOTE | 2021-01-14 17:03 | RAD ---
Chest radiograph 01/14/2021 4:57 PM INDICATION: Chest pain COMPARISON: December 05, 2020 TECHNIQUE: Frontal and lateral views of the chest are provided. FINDINGS: The cardiomediastinal silhouette is within normal limits. There are no pleural effusions. There is no pulmonary vascular congestion. There is no pneumothorax. The lungs are clear. No significant osseous abnormality is identified. IMPRESSION: No acute cardiopulmonary process. Electronically signed by: Francie Garcia MD (01/14/2021 5:01 PM) [id number]
[2021-01-14 17:27] LABS: BARBITURATES NEG (NEG); BENZODIAZEPINES NEG (NEG); CANNABINOIDS NEG (NEG); COCAINE NEG (NEG); METHADONE NEG (NEG); OPIATES NEG (NEG); PHENCYCLIDINE NEG (NEG)
[2021-01-14 17:30] LABS: AMPHETAMINE/METHAMPHETAMINE NEG (NEG)
[2021-01-14 17:40] LABS: BASO % 1 % (0-3); EOS # 0.1 x10^3/uL (0.0-0.7); EOS % 1 % (0-3); HEMATOCRIT 38.9 % (36.0-47.0); HEMOGLOBIN 13.2 g/dL (12.0-15.5); LYMPH # 2.1 x10^3/uL (1.0-4.8); LYMPH % 31 % (24-48); MEAN CORPUSCULAR HEMOGLOBIN 31 pg (25-35); MEAN CORPUSCULAR HGB CONC 34 g/dL (31-37); MEAN CORPUSCULAR VOLUME 90 fL (79-100); MONO # 0.4 x10^3/uL (0.0-1.1); MONO % 5 % (0-9); NEUT # 4.2 x10^3uL (1.8-7.7); NEUT % 62 % (31-73); PLATELET COUNT 246 x10^3/uL (140-400); RED BLOOD COUNT 4.32 x10^6/uL (3.50-5.40); RED CELL DISTRIBUTION WIDTH 12.4 % (11.5-14.5); WHITE BLOOD COUNT 6.7 x10^3/uL (4.0-11.0)
[2021-01-14 17:41] LABS: CALCIUM 8.6 mg/dL (8.5-10.1); CREATININE 0.6 mg/dL (0.6-1.0); GFR 119.9; POTASSIUM 3.8 mmol/L (3.5-5.1)
[2021-01-14 17:54] LABS: BILIRUBIN,URINE NEG (NEG); CLARITY,URINE CLEAR; COLOR,URINE YELLOW; GLUCOSE,URINE NEG (NEG)
[2021-01-14 17:55] LABS: BACTERIA,URINE 0 /HPF (0-FEW); NITRITE,URINE NEG (NEG); RBC,URINE 0 /HPF (0-2); UROBILINOGEN,URINE 0.2 mg/dL (0.2 mg/dL); WBC,URINE 0 /HPF (0-4)
[2021-01-14 17:57] LABS: ALBUMIN 3.8 g/dL (3.4-5.0); ALBUMIN/GLOBULIN RATIO 1.1 (1.0-1.7); DIRECT BILIRUBIN 0.2 mg/dL (0.0-0.2); MAGNESIUM 2.2 mg/dL (1.8-2.4); TOTAL BILIRUBIN 0.4 mg/dL (0.2-1.0); TOTAL PROTEIN 7.3 g/dL (6.4-8.2)
--- NOTE | 2021-01-15 06:41 | EKG ---
[address] [address] Test Date: 2021-01-14 Test Time: 14:29:12 Pat Name: LINDSEY ORELLANA Department: Room: Gender: F Core Worker: THANG : 1995 Requested By: CHRISTINA BERG Order Number: [id number] Reading MD: Measurements Intervals [place] Rate: 71 P: 36 UT: 158 QRS: 59 QRSD: 78 T: 44 QT: 412 QTc: 448 Interpretive Statements SINUS RHYTHM NORMAL ECG RI6.02 No previous ECG available for comparison
== END 2021-01-14 18:26 | disposition home or self-care (01) ==
LOC: ER 14:24
DX: R07.89 Other chest pain (principal); Z20.828 Contact with and (suspected) exposure to other viral communicable diseases; R50.9 Fever, unspecified; F41.9 Anxiety disorder, unspecified; Z86.73 Personal history of transient ischemic attack (TIA), and cerebral infarction without residual deficits
CPT/HCPCS: 36415; 71046; 80053; 80076; 80307; 81001; 81025; 82553; 83690; 83735; 83880; 84484; 85025; 85379; 85610; 85730; 93005; 99285; C9803; U0003; U0005

== ENCOUNTER 2021-02-19 21:47 | Emergency (ER) | payer SELFPAY ==
[~2021-02-19] VITALS: Ht 172.7 cm; Wt 80.0 kg
--- NOTE | 2021-02-19 22:03 | PHYS DOC ---
Past History Past Medical History: Anxiety, CVA, Seizure, Other Additional Past Medical Histor: hx of opoid abuse (herion) seizure and cva was drug induced per patient Past Surgical History: No Surgical History Alcohol Use: None Drug Use: None General Adult EDM: Chief Complaint: ANXIETY/PANIC ATTACK HPI: HPI: Patient is a [age] year old [sex] who presents with [] Review of Systems: Review of Systems: Constitutional: Denies fever or chills Eyes: Denies redness or eye pain HENT: Denies nasal congestion or sore throat Respiratory: Denies cough or shortness of breath Cardiovascular: Denies chest pain or palpitations GI: Denies abdominal pain, nausea, or vomiting : Denies dysuria or hematuria Musculoskeletal: Denies back pain or joint pain Integument: Denies rash or skin lesions Neurologic: Denies headache, focal weakness or sensory changes Complete systems were reviewed and found to be within normal limits, except as documented in this note. Allergies: Allergies: Allergies Coded Allergies Type Severity Reaction Last Updated Verified No Known Drug Allergies 12/05/20 No Physical Exam: PE: Constitutional: Well developed, well nourished, no acute distress, non-toxic appearance HENT: Normocephalic, atraumatic Eyes: PERRL, EOMI, conjunctiva normal, no discharge Neck: Normal range of motion, no tenderness, supple Lungs & Thorax: No respiratory distress, equal chest rise and fall Abdomen: Soft, no tenderness Skin: Warm, dry, no erythema, no rash Back: No tenderness, no CVA tenderness Extremities: No tenderness, ROM intact, no edema Neurologic: Alert and oriented X 3, normal motor function, normal sensory function, no focal deficits noted Psychologic: Affect normal, judgment normal EKG: EKG: [] Radiology/Procedures: Radiology/Procedures: [] Heart Score: C/O Chest Pain: N/A Course & Med Decision Making: Course & Med Decision Making Patient stable for discharge with outpatient follow-up with PCP. Discussed findings and plan with patient, who acknowledges understanding and agreement. Imelda Disclaimer: Imelda Disclaimer: This electronic medical record was generated, in whole or in part, using a voice recognition dictation system. Departure Departure: Impression: Primary Impression: Anxiety Disposition: HOME / SELF CARE / HOMELESS Condition: STABLE Referrals: PCP,ABBY (PCP) Patient Instructions: Anxiety and Panic Attacks, [id number] TETE NUNEZ DO February 19, 2021 22:03
[2021-02-19 22:19] VITALS: BP 124/87
[2021-02-19] MEDS ORDERED: LORazepam 1 MG TABLET PO ONE (22:30)
== END 2021-02-19 22:19 | disposition home or self-care (01) ==
LOC: ER 21:47
DX: F41.9 Anxiety disorder, unspecified (principal); Z86.73 Personal history of transient ischemic attack (TIA), and cerebral infarction without residual deficits
CPT/HCPCS: 99283

== ENCOUNTER 2021-06-10 20:04 | Emergency (ER) | payer MEDICARE | END 2021-06-10 20:24 | disposition left against medical advice (07) | LOC: ER 20:04 | DX: R07.9 Chest pain, unspecified (principal); Z53.21 Procedure and treatment not carried out due to patient leaving prior to being seen by health care provider ==

== ENCOUNTER 2021-08-17 19:28 | Emergency (ER) | payer MEDICARE ==
[~2021-08-17] VITALS: Ht 172.7 cm; Wt 81.2 kg
[~2021-08-17 19:28] MED LIST changes: +CLIN-95 PO; -CLIN300C9 PO
--- NOTE | 2021-08-17 20:23 | PHYS DOC ---
Past History Past Medical History: Anxiety, CVA, Seizure, Other Additional Past Medical Histor: hx of opoid abuse (herion) seizure and cva was drug induced per patient Past Surgical History: No Surgical History Smoking: Cigarettes Alcohol Use: None Drug Use: None General Adult EDM: Chief Complaint: ALLERGIC REACTION HPI: HPI: ".. I having an allergic reaction...".. " I had just started dye to my hair.. ".. ' It felt like my skin was burning.. itching,.., and got red... I washed it out right away.. but it is still bothering me..." Patient is a 26 year old female who presents with above hx and complailnts media allergic reaction to hair dye. Patient states she has not had this problem before. She did rinse it out right away but still has some itching and burning to the skin area. Patient denies any history immunosuppression. No recent travel. No history of trauma. Does have a history of anxiety. Patientt. follows with Dr. Cordoba. No specific ill contacts. Review of Systems: Review of Systems: Constitutional: Denies fever or chills Eyes: Denies change in visual acuity HENT: Denies nasal congestion or sore throat Respiratory: Denies cough or shortness of breath Cardiovascular: Denies chest pain or edema GI: Denies abdominal pain, nausea, vomiting, bloody stools or diarrhea : Denies dysuria Musculoskeletal: Denies back pain or joint pain Integument: Complains of allergic skin reaction Neurologic: Denies headache, focal weakness or sensory changes Endocrine: Denies polyuria or polydipsia Lymphatic: Denies swollen glands Psychiatric: Denies depression or anxiety Family History: Family History: Noncontributory presentation Current Medications: Current Meds: See nursing for home meds Allergies: Allergies: Allergies Coded Allergies Type Severity Reaction Last Updated Verified No Known Drug Allergies 12/05/20 No Physical Exam: PE: Constitutional: Well developed, well nourished, moderate acute distress, non- toxic appearance. [] HENT: Normocephalic, atraumatic, bilateral external ears normal, oropharynx mo ist, no oral exudates, nose normal. Topical irritation reaction scalp and forehead skin Eyes: PERRLA, EOMI, conjunctiva normal, no discharge. [] Neck: Normal range of motion, no tenderness, supple, no stridor. [] Cardiovascular:Heart rate regular rhythm, no murmur [] Lungs & Thorax: Bilateral breath sounds equal apex on auscultation [] Abdomen: Bowel sounds normal, soft, no tenderness, no masses, no pulsatile masses. [] Skin: Warm, dry, no erythema, scalp rash. [] Back: No tenderness, no CVA tenderness. [] Extremities: No tenderness, no cyanosis, no clubbing, ROM intact, no edema. [] Neurologic: Alert and oriented X 3, normal motor function, normal sensory function, no focal deficits noted. [] Psychologic: Affect anxious, judgement normal, mood normal. [] Current Patient Data: Vital Signs: Vital Signs Date Time Temp Pulse Resp B/P (MAP) Pulse Ox O2 Delivery O2 Flow Rate FiO2 08/17/21 20:15 98.3 90 18 128/82 (97) 97 Room Air EKG: EKG: [] Radiology/Procedures: Radiology/Procedures: [] Heart Score: C/O Chest Pain: N/A Risk Factors: Risk Factors: DM, Current or recent (<one month) smoker, HTN, HLP, family history of CAD, obesity. Risk Scores: Score 0 - 3: 2.5% MACE over next 6 weeks - Discharge Home Score 4 - 6: 20.3% MACE over next 6 weeks - Admit for Clinical Observation Score 7 - 10: 72.7% MACE over next 6 weeks - Early Invasive Strategies Course & Med Decision Making: Course & Med Decision Making Pertinent Labs and Imaging studies reviewed. (See chart for details) Patient to wash off the hydrocortisone cream after getting home. Patient take Benadryl 50 mg at 4 times a day. Patient take prednisone 50 mg a day. Patient take Pepcid 20 mg twice a day. Follow-up primary care. Avoid use hair dye ag ain. Impression: 1. Topical allergic reaction to hair dye 2. History anxiety. [] Dragon Disclaimer: Dragon Disclaimer: This electronic medical record was generated, in whole or in part, using a voice recognition dictation system. Departure Departure: Referrals: TREASURE CORDOBA MD (PCP) Scripts Famotidine (PEPCID) 20 Mg Tablet 20 MG PO BID for allergic reaction for 10 Days, #20 TAB Prov: JAMSHID ESCUDERO MD 08/17/21 Prednisone (PREDNISONE) 50 Mg Tablet 50 MG PO DAILY for allergic reaction for 5 Days, #5 TAB Prov: JAMSHID ESCUDERO MD 08/17/21 Imelda Disclaimer This chart was dictated in whole or in part using Voice Recognition software in a busy, high-work load, and often noisy Emergency Department environment. It may contain unintended and wholly unrecognized errors or omissions. JAMSHID ESCUDERO MD Aug 17, 2021 20:23
[2021-08-17] MEDS ORDERED: PRED50TA PO (21:19)
[2021-08-17] MEDS ORDERED: FAMO-63 PO (21:19)
[2021-08-17] MEDS ORDERED: diphenhydrAMINE HCL 25 MG CAPSULE PO ONE (21:30)
[2021-08-17] MEDS ORDERED: FAMOTIDINE 20 MG TABLET PO ONE (21:30)
[2021-08-17] MEDS ORDERED: predniSONE 10 MG TABLET. PO ONE (21:30)
[2021-08-17 21:40] VITALS: BP 112/71
[2021-08-17] MEDS ORDERED: HYDROCORTISONE 1% TOPICAL CREAM 30GM TUBE. TP ONE (22:00)
[2021-08-17] MEDS ORDERED: HYDROCORTISONE 1% TOPICAL OINTMENT 30GM TUBE. TP ONE (22:00)
== END 2021-08-17 21:48 | disposition home or self-care (01) ==
LOC: ER 19:28
DX: L29.9 Pruritus, unspecified (principal); T49.4X5A Adverse effect of keratolytics, keratoplastics, and other hair treatment drugs and preparations, initial encounter; F41.9 Anxiety disorder, unspecified; F17.210 Nicotine dependence, cigarettes, uncomplicated; Z86.73 Personal history of transient ischemic attack (TIA), and cerebral infarction without residual deficits; Y92.89 Other specified places as the place of occurrence of the external cause
CPT/HCPCS: 99285; J7512; Q0163

== ENCOUNTER 2021-09-04 16:41 | Emergency (ER) | payer MEDICARE ==
[~2021-09-04] VITALS: Ht 172.7 cm; Wt 81.2 kg
[~2021-09-04 16:41] MED LIST changes: +FAMO-63 PO; +PRED50TA PO
--- NOTE | 2021-09-04 16:54 | PHYS DOC ---
Past History Past Medical History: Anxiety, CVA, Seizure, Other Additional Past Medical Histor: hx of opioid abuse (heroin) seizure and cva was drug induced per patient Past Surgical History: No Surgical History Smoking: Cigarettes Alcohol Use: None Drug Use: None General Adult EDM: Chief Complaint: ABDOMINAL PAIN HPI: HPI: Patient is a 26 year old female who presents with RLQ abdominal pain. She does report some mid suprapubic pelvic pain as well. She denies nausea, vomiting, anorexia. Symptoms began this afternoon. She reports that the pain was doubling her over. She denies constipation or diarrhea. She denies urinary symptoms. She denies vaginal discharge or bleeding. LMP was within the last month. She denies previous abdominal or pelvic surgeries. No abdominal or pelvic trauma reported. No fevers or chills reported. No previous similar symptoms. Review of Systems: Review of Systems: Constitutional: Denies fever or chills Respiratory: Denies cough or shortness of breath Cardiovascular: Denies chest pain or edema GI: Reports abdominal pain. Denies nausea, vomiting, diarrhea, constipation. : Denies dysuria, denies vaginal discharge or bleeding. Musculoskeletal: Denies back pain or joint pain Integument: Denies rash Neurologic: Denies headache, focal weakness or sensory changes Psychiatric: Denies acute mood changes. Allergies: Allergies: Allergies Coded Allergies Type Severity Reaction Last Updated Verified No Known Drug Allergies 12/05/20 No Physical Exam: PE: Constitutional: Well developed, well nourished, no acute distress, non-toxic appearance. [] HENT: Normocephalic, atraumatic Eyes: Sclera clear and anicteric Neck: Trachea midline Cardiovascular:Heart rate regular rhythm, +2 radial and dorsalis pedis pulses bilaterally Lungs & Thorax: Bilateral breath sounds clear to auscultation [] Abdomen: Abdomen is soft, nondistended, tender to palpation minimally in the right lower quadrant and suprapubic areas. No guarding, no rebound tenderness. No focal tenderness at McBurney's. Negative psoas sign. Negative Rovsing's. No CVA tenderness. No upper abdominal tenderness. No flank or abdominal ecchymoses. Skin: Warm, dry, no erythema, no rash. [] Back: No tenderness, no CVA tenderness. [] Extremities: No tenderness, no cyanosis, no clubbing, ROM intact, no edema. No calf tenderness. Neurologic: Alert and oriented X 3, normal motor function, normal sensory function, no focal deficits noted. [] Psychologic: Affect normal, judgement normal, mood normal. [] Current Patient Data: Vital Signs: Vital Signs Date Time Temp Pulse Resp B/P (MAP) Pulse Ox O2 Delivery O2 Flow Rate FiO2 09/04/21 16:49 97.9 76 18 137/91 (106) 98 Room Air EKG: EKG: [] Radiology/Procedures: Radiology/Procedures: IMAGING REPORT Signed PATIENT: LINDSEY ORELLANA ACCOUNT: [id number] : 1995 LOCATION: ER AGE: 26 SEX: F EXAM STATUS: REG ER ORD. PHYSICIAN: LEONORA BURCIAGA DO REASON: RLQ pain, 75mls omni 300 PROCEDURE: CT ABD PELV W/ IV CONTRST ONLY Exam: CT of abdomen and pelvis without contrast INDICATION: Right lower quadrant pain TECHNIQUE: Sequential axial images through the abdomen and pelvis obtained without IV contrast. Sagittal and coronal reformatted images were reconstructed from the axial data and reviewed. Exposure: One or more of the following in the visualized dose reduction techniques were utilized for this examination: 1. Automated exposure control 2. Adjustment of the MA and/or KV according to patient size 3. Use of iterative of reconstructive technique Comparisons: None FINDINGS: Heart size is normal. No pericardial effusion. Visualized lung bases are clear. No pleural effusion. Liver, spleen, pancreas, gallbladder and adrenals are unremarkable. No perinephric inflammation or hydronephrosis. No renal or ureteral calculi are identified. Bladder is partially distended and not well evaluated. Uterus is not enlarged. Cystic lesion at the right adnexa which measures approximately 2.7 cm in diameter. Appendix is normal. Large and small bowel are unremarkable. No free intra- abdominal air or fluid. No obstruction. Abdominal aorta has normal course and caliber. Abdominal vasculature is patent. No enlarged intra-abdominal lymph nodes are identified. No suspicious osseous lesions or acute fractures. IMPRESSION: 1. Cystic lesion at the right adnexa favored represent cyst within the right ovary measuring up to 2.7 cm in diameter. Incompletely characterized on CT. 2. Normal appendix. Otherwise, no acute process identified within the abdomen or pelvis. Electronically signed by: Sabas Burger MD (09/04/2021 5:32 PM) [facility] DICTATED AND SIGNED BY: SABAS BURGER MD DATE: 09/04/21 1728 CC: LEONORA BURCIAGA DO; TREASURE CORDOBA MD ~MTH0 0 IMAGING REPORT Signed PATIENT: LINDSEY ORELLANA ACCOUNT: [id number] : 1995 LOCATION: ER AGE: 26 SEX: F EXAM STATUS: REG ER ORD. PHYSICIAN: LEONORA BURCIAGA DO REASON: pelvic pain PROCEDURE: PELVIS COMPLETE EXAMINATION: US PELVIS COMPLETE (PELVIC ULTRASOUND) HISTORY: Pelvic pain, right adnexal cysts on same-day CT TECHNIQUE: Sonography of the pelvis was performed by transabdominal technique only. COMPARISON: CT abdomen/pelvis same day FINDINGS: Uterus: 9.1 x 4.7 x 3.2 cm - Myometrium: Normal sonographic appearance. - Endometrium: 8 mm - Cervix: Normal Right ovary: 6.4 x 2.2 x 2.6 cm - 2.7 x 1.8 x 1.7 cm cystic lesion with dependent echogenicity, possibly representing debris. No associated vascularity. Normal blood flow. Left ovary: 3.1 x 2.3 x 2.2 cm - Normal sonographic appearance and blood flow. Pelvic free fluid: None. IMPRESSION: Nonspecific 2.7 cm cystic lesion in the right ovary as described, possibly a complicated cyst. Consider follow-up transvaginal pelvic ultrasound in 6-12 weeks to evaluate for stability/resolution as indicated. Electronically signed by: Aman Zheng DO (09/04/2021 6:11 PM) [facility] DICTATED AND SIGNED BY: AMAN ZHENG DO DATE: 09/04/21 1803 CC: LEONORA BURCIAGA DO; TREASURE CORDOBA MD ~MTH0 0 Heart Score: C/O Chest Pain: No Risk Factors: Risk Factors: DM, Current or recent (<one month) smoker, HTN, HLP, family history of CAD, obesity. Risk Scores: Score 0 - 3: 2.5% MACE over next 6 weeks - Discharge Home Score 4 - 6: 20.3% MACE over next 6 weeks - Admit for Clinical Observation Score 7 - 10: 72.7% MACE over next 6 weeks - Early Invasive Strategies Course & Med Decision Making: Course & Med Decision Making Pertinent Labs and Imaging studies reviewed. (See chart for details) I discussed the findings, differential diagnosis and plan of care with her. She is given IV fluids and IV fentanyl for pain. She is resting comfortably. She has a nonsurgical abdominal exam. She feels comfortable plan for discharge home. I told her to follow-up with her primary care physician. Strict return precautions are given. Dragon Disclaimer: Dragon Disclaimer: This electronic medical record was generated, in whole or in part, using a voice recognition dictation system. Departure Departure: Impression: Primary Impression: Lower abdominal pain Additional Impression: Right ovarian cyst Disposition: HOME / SELF CARE / HOMELESS Condition: STABLE Referrals: TREASURE CORDOBA MD (PCP) Patient Instructions: Abdominal Pain (Nonspecific), Ovarian Cyst Additional Instructions: Return to the ER for more severe pain, uncontrolled vomiting, dehydration, temperature of 100.4 or higher, or any other concerns. You may take [id number] Tylenol or ibuprofen for pain. Please contact your primary care physician for follow-up. Scripts Ondansetron Hcl (ZOFRAN) 4 Mg Tablet 1 TAB PO Q6HRS for vomiting, #20 TAB Prov: LEONORA BURCIAGA DO 09/04/21 LEONORA BURCIAGA DO Sep 04, 2021 16:54
[2021-09-04] MEDS ORDERED: ONDANSETRON PF 4 MG/2 ML VIAL. IVP ONE (17:15)
[2021-09-04] MEDS ORDERED: IOHEXOL 300 MG/ML 75 ML VIAL. IV ONE (17:15)
[2021-09-04 17:27] LABS: BASO % 1 % (0-3); EOS # 0.1 x10^3/uL (0.0-0.7); EOS % 2 % (0-3); HEMATOCRIT 40.2 % (36.0-47.0); HEMOGLOBIN 13.7 g/dL (12.0-15.5); LYMPH # 2.2 x10^3/uL (1.0-4.8); LYMPH % 34 % (24-48); MEAN CORPUSCULAR HEMOGLOBIN 30 pg (25-35); MEAN CORPUSCULAR HGB CONC 34 g/dL (31-37); MEAN CORPUSCULAR VOLUME 89 fL (79-100); MONO # 0.5 x10^3/uL (0.0-1.1); MONO % 8 % (0-9); NEUT # 3.7 x10^3uL (1.8-7.7); NEUT % 56 % (31-73); PLATELET COUNT 231 x10^3/uL (140-400); RED BLOOD COUNT 4.51 x10^6/uL (3.50-5.40); RED CELL DISTRIBUTION WIDTH 12.4 % (11.5-14.5); WHITE BLOOD COUNT 6.5 x10^3/uL (4.0-11.0)
--- NOTE | 2021-09-04 17:34 | RAD ---
Exam: CT of abdomen and pelvis without contrast INDICATION: Right lower quadrant pain TECHNIQUE: Sequential axial images through the abdomen and pelvis obtained without IV contrast. Sagit uriel and coronal reformatted images were reconstructed from the axial data and reviewed. Exposure: One or more of the following in the visualized dose reduction techniques were utilized for this examination: 1. Automated exposure control 2. Adjustment of the MA and/or KV according to patient size 3. Use of iterative of reconstructive technique Comparisons: None FINDINGS: Heart size is normal. No pericardial effusion. Visualized lung bases are clear. No pleural effusion. Liver, spleen, pancreas, gallbladder and adrenals are unremarkable. No perinephric inflammation or hydronephrosis. No renal or ureteral calculi are identified. Bladder is partially distended and not well evaluated. Uterus is not enlarged. Cystic lesion at the r ight adnexa which measures approximately 2.7 cm in diameter. Appendix is normal. Large and small bowel are unremarkable. No free intra-abdominal air or fluid. No obstruction. Abdominal aorta has normal course and caliber. Abdominal vasculature is patent. No enlarged intra-abdominal lymph nodes are identified. No suspicious osseous lesions or acute fractures. IMPRESSION: 1. Cystic lesion at the right adnexa favored represent cyst within the right ovary measuring up to 2 .7 cm in diameter. Incompletely characterized on CT. 2. Normal appendix. Otherwise, no acute process identified within the abdomen or pelvis. Electronically signed by: Sabas Castro MD (09/04/2021 5:32 PM) [facility]
[2021-09-04 17:37] LABS: CALCIUM 8.3 mg/dL (8.5-10.1); CREATININE 0.7 mg/dL (0.6-1.0); GFR 99.6; POTASSIUM 4.1 mmol/L (3.5-5.1)
[2021-09-04 17:38] LABS: BILIRUBIN,URINE NEG (NEG); CLARITY,URINE HAZY; COLOR,URINE YELLOW; GLUCOSE,URINE NEG (NEG)
[2021-09-04 17:39] LABS: AMORPHOUS SEDIMENT,UR PRESENT /HPF; BACTERIA,URINE 0 /HPF (0-FEW); NITRITE,URINE NEG (NEG); RBC,URINE 0 /HPF (0-2); SQUAMOUS EPITHELIAL CELL,UR FEW /LPF; WBC,URINE 0 /HPF (0-4)
[2021-09-04 17:43] LABS: ALBUMIN 3.5 g/dL (3.4-5.0); ALBUMIN/GLOBULIN RATIO 1.1 (1.0-1.7); TOTAL BILIRUBIN 0.4 mg/dL (0.2-1.0); TOTAL PROTEIN 6.8 g/dL (6.4-8.2)
--- NOTE | 2021-09-04 18:13 | RAD ---
EXAMINATION: US PELVIS COMPLETE (PELVIC ULTRASOUND) HISTORY: Pelvic pain, right adnexal cysts on same-day CT TECHNIQUE: Sonography of the pelvis was performed by transabdominal technique only. COMPARISON: CT abdomen/pelvis same day FINDINGS: Uterus: 9.1 x 4.7 x 3.2 cm - Myometrium: Normal sonographic appearance. - Endometrium: 8 mm - Cervix: Normal Right ovary: 6.4 x 2.2 x 2.6 cm - 2.7 x 1.8 x 1.7 cm cystic lesion with dependent echogenicity, possibly representing debris. No a ssociated vascularity. Normal blood flow. Left ovary: 3.1 x 2.3 x 2.2 cm - Normal sonographic appearance and blood flow. Pelvic free fluid: None. IMPRESSION: Nonspecific 2.7 cm cystic lesion in the right ovary as described, possibly a complicated cyst. Consid er follow-up transvaginal pelvic ultrasound in 6-12 weeks to evaluate for stability/resolution as ind icated. Electronically signed by: Aman Nguyen DO (09/04/2021 6:11 PM) [facility]
[2021-09-04] MEDS ORDERED: ONDA4TAB7 PO (18:26)
[2021-09-04 18:54] VITALS: BP 101/66
== END 2021-09-04 18:55 | disposition home or self-care (01) ==
LOC: ER 16:41
DX: N83.201 Unspecified ovarian cyst, right side (principal); F41.9 Anxiety disorder, unspecified; F17.210 Nicotine dependence, cigarettes, uncomplicated
CPT/HCPCS: 36415; 74177; 76856; 80053; 81001; 81025; 83690; 85025; 96374; 96375; 99285; J2405; J3010; Q9967

== ENCOUNTER 2021-12-01 23:15 | Emergency (ER) | payer MEDICARE ==
[~2021-12-01] VITALS: Ht 172.7 cm; Wt 81.2 kg
[~2021-12-01 23:15] MED LIST changes: +ONDA4TAB7 PO
--- NOTE | 2021-12-01 23:17 | PHYS DOC ---
Past History Past Medical History: Anxiety, CVA, Seizure, Other Additional Past Medical Histor: hx of opioid abuse (heroin) seizure and cva was drug induced per patient Past Surgical History: No Surgical History Smoking: Cigarettes Alcohol Use: None Drug Use: None General Adult HPI: HPI: ".. I ve been having some fast heart rates the past weeks.. it just seemed very fast tonight... I felt I should get it checked out..." Patient is a 26 year old female who presents with above hx and complaints of tachycardia past week. Patient concerned tonight because of the pain much more rapid tonight than other nights. Patient denies any previous history of supraventricular tachycardia or cardiac disorders. She does have a history of anxiety, CVA, seizure disorder, opiate or dependence, tobacco use, patient currently on Suboxone daily and has not used narcotics for the past year. Patient states the CVA was a result of her drug use. Patient denies any excess rosalba caffeine use. Patient denies any recent travel. No specific ill contacts. Did get a tetanus update recently. Has not gotten COVID vaccination or flu vaccination. Patient normally follows with Dr. Cordoba for care Review of Systems: Review of Systems: Constitutional: Denies fever or chills Eyes: Denies change in visual acuity HENT: Denies nasal congestion or sore throat Respiratory: Some history of cough Cardiovascular: Denies chest pain or edema. Complaints of tachycardia episodes GI: Denies abdominal pain, nausea, vomiting, bloody stools or diarrhea : Denies dysuria Musculoskeletal: Denies back pain or joint pain Integument: Denies rash Neurologic: Denies headache, focal weakness or sensory changes Endocrine: Denies polyuria or polydipsia Lymphatic: Denies swollen glands Psychiatric: Denies depression or anxiety Family History: Family History: Noncontributory to presentation Current Medications: Current Meds: See nursing for home meds Allergies: Allergies: Allergies Coded Allergies Type Severity Reaction Last Updated Verified No Known Drug Allergies 12/05/20 No Physical Exam: PE: Constitutional: no acute distress, non-toxic appearance. [] HENT: Normocephalic, atraumatic, bilateral external ears normal, oropharynx moist, no oral exudates, nose normal. [] Eyes: PERRLA, EOMI, conjunctiva normal, no discharge. Glasses Neck: Normal range of motion, no tenderness, supple, no stridor. [] Cardiovascular: Tachycardia heart rate regular rhythm, no murmur []. Bedside monitor shows a sinus tachycardia rhythm. Lungs & Thorax: Bilateral breath sounds equal apex few scattered wheezes on auscultation [] Abdomen: Bowel sounds normal, soft, no tenderness, no masses, no pulsatile masses. [] Skin: Warm, dry, no erythema, no rash. [] Back: No tenderness, no CVA tenderness. [] Extremities: No tenderness, no cyanosis, no clubbing, ROM intact, no edema. [] No cording appreciated. Neurologic: Alert and oriented X 3, normal motor function, normal sensory function, no focal deficits noted. [] Psychologic: Affect anxious, judgement normal, mood normal. [] EKG: EKG: My interpretation EKG shows a sinus rhythm at 94 bpm. There is some contour changes in anterior lateral area. There is slightly prolonged QT interval at 380 ms a QTC of 481 ms. No findings of acute STEMI of contralateral changes. Time of EKG is 2330 hrs. [] My interpretation of second EKG shows sinus rhythm at 72 bpm. No acute morphology. Time of EKG 115 hours Radiology/Procedures: Radiology/Procedures: [] Heart Score: C/O Chest Pain: No HEART Score for Chest Pain: HEART Score for Chest Pain Response (Comments) Value History Slighlty/Non-Suspicious 0 ECG Normal 0 Age < 45 0 Risk Factors 1 or 2 Risk Factors 1 Troponin < Normal Limit 0 Total 1 Risk Factors: Risk Factors: DM, Current or recent (<one month) smoker, HTN, HLP, family history of CAD, obesity. Risk Scores: Score 0 - 3: 2.5% MACE over next 6 weeks - Discharge Home Score 4 - 6: 20.3% MACE over next 6 weeks - Admit for Clinical Observation Score 7 - 10: 72.7% MACE over next 6 weeks - Early Invasive Strategies Course & Med Decision Making: Course & Med Decision Making Pertinent Labs and Imaging studies reviewed. (See chart for details) Patient follow-up primary care. Patient take meds as directed. Patient avoid caffeine and stimulant drinks. Patient return if any concerns. Have primary review ED record. Follow-up pending culture of urine. Keep follow up for cardiac work up and echo. Impression: 1. History of episodes of tachycardia 2. History of opioid dependence(no use for the past year on Suboxone) 3. History of CVA induced by opioid abuse 4. Tobacco use 5. Mild elevation AST 80 and Alt 132. 6. Leukcytes Urine- pt defers tx at this time [] Imelda Disclaimer: Imelda Disclaimer: This electronic medical record was generated, in whole or in part, using a voice recognition dictation system. Departure Departure: Referrals: TREASURE CORDOBA MD (PCP) Imelda Disclaimer This chart was dictated in whole or in part using Voice Recognition software in a busy, high-work load, and often noisy Emergency Department environment. It may contain unintended and wholly unrecognized errors or omissions. JAMSHID ESCUDERO MD Dec 01, 2021 23:17
[2021-12-02] MEDS ORDERED: ASPIRIN CHEWABLE 81 MG TABLET. PO ONE
[2021-12-02] MEDS ORDERED: IV RINGERS SOLUTION,LACTATED 1,000 ML IV SCH
[2021-12-02 00:19] LABS: BASO # 0.1 x10^3/uL (0.0-0.2); BASO % 1 % (0-3); EOS # 0.2 x10^3/uL (0.0-0.7); EOS % 4 % (0-3); HEMATOCRIT 39.1 % (36.0-47.0); HEMOGLOBIN 13.5 g/dL (12.0-15.5); LYMPH # 2.9 x10^3/uL (1.0-4.8); LYMPH % 46 % (24-48); MEAN CORPUSCULAR HEMOGLOBIN 31 pg (25-35); MEAN CORPUSCULAR HGB CONC 35 g/dL (31-37); MEAN CORPUSCULAR VOLUME 90 fL (79-100); MONO # 0.4 x10^3/uL (0.0-1.1); MONO % 7 % (0-9); NEUT # 2.7 x10^3uL (1.8-7.7); NEUT % 43 % (31-73); PLATELET COUNT 203 x10^3/uL (140-400); RED BLOOD COUNT 4.32 x10^6/uL (3.50-5.40); RED CELL DISTRIBUTION WIDTH 12.1 % (11.5-14.5); WHITE BLOOD COUNT 6.3 x10^3/uL (4.0-11.0)
[2021-12-02 00:29] LABS: INFLUENZA A PATIENT NEGATIVE (NEGATIVE); INFLUENZA B PATIENT NEGATIVE (NEGATIVE)
[2021-12-02 00:31] LABS: CLARITY,URINE CLEAR; COLOR,URINE YELLOW; GLUCOSE,URINE NEG (NEG); NITRITE,URINE NEG (NEG); UROBILINOGEN,URINE 0.2 mg/dL (0.2 mg/dL)
[2021-12-02 00:32] LABS: BACTERIA,URINE FEW /HPF (0-FEW); RBC,URINE 0 /HPF (0-2); SQUAMOUS EPITHELIAL CELL,UR MOD /LPF
[2021-12-02 00:37] LABS: BARBITURATES NEG (NEG); BENZODIAZEPINES NEG (NEG); CANNABINOIDS NEG (NEG); COCAINE NEG (NEG); METHADONE NEG (NEG); OPIATES NEG (NEG); PHENCYCLIDINE NEG (NEG)
[2021-12-02 00:39] LABS: CALCIUM 8.8 mg/dL (8.5-10.1); CREATININE 0.7 mg/dL (0.6-1.0); GFR 99.6; POTASSIUM 3.8 mmol/L (3.5-5.1)
[2021-12-02 00:42] LABS: AMPHETAMINE/METHAMPHETAMINE NEG (NEG)
[2021-12-02 00:52] LABS: ALBUMIN 3.7 g/dL (3.4-5.0); DIRECT BILIRUBIN 0.1 mg/dL (0.0-0.2); MAGNESIUM 2.2 mg/dL (1.8-2.4); TOTAL BILIRUBIN 0.3 mg/dL (0.2-1.0); TOTAL PROTEIN 6.8 g/dL (6.4-8.2)
--- NOTE | 2021-12-02 00:59 | RAD ---
XR CHEST 1V 12/01/2021 12:30 AM INDICATION: Tachycardia COMPARISON: 01/14/2021 TECHNIQUE: Portable frontal view of the chest is provided. FINDINGS: The cardiomediastinal silhouette is within normal limits. Lungs are clear. There are no significant pleural effusions. There is no pulmonary vascular congestion. No pneumothora x. No suspicious osseous abnormality. IMPRESSION: There is no acute cardiopulmonary process. Electronically signed by: Francie Garcia MD (12/02/2021 12:57 AM) [facility]
[2021-12-02 02:27] VITALS: BP 114/76
--- NOTE | 2021-12-02 04:11 | EKG ---
[address] [address] Test Date: 2021-12-02 Test Time: 01:15:13 Pat Name: LINDSEY ORELLANA Department: Room: Gender: F Manager Demand: KEYANA : 1995 Requested By: JAMSHID ESCUDERO Order Number: [id number] Reading MD: Measurements Intervals [place] Rate: 72 P: 48 ID: [id number] QRS: 33 QRSD: 80 T: 28 QT: 396 QTc: 435 Interpretive Statements SINUS RHYTHM NORMAL ECG RI6.01 No previous ECG available for comparison
[2021-12-02 15:26] LABS: CHOLESTEROL/HDL RATIO 3.5; THYROID STIM HORMONE (TSH) 3.406 uIU/mL (0.358-3.740)
== END 2021-12-02 02:27 | disposition home or self-care (01) ==
LOC: ER 23:15
DX: R79.89 Other specified abnormal findings of blood chemistry (principal); R00.0 Tachycardia, unspecified; F11.20 Opioid dependence, uncomplicated; F41.9 Anxiety disorder, unspecified; F17.210 Nicotine dependence, cigarettes, uncomplicated; G40.909 Epilepsy, unspecified, not intractable, without status epilepticus; Z20.822 Contact with and (suspected) exposure to COVID-19; Z86.73 Personal history of transient ischemic attack (TIA), and cerebral infarction without residual deficits
CPT/HCPCS: 36415; 71045; 80048; 80061; 80076; 80307; 81001; 81025; 82550; 83690; 83735; 83880; 84443; 84484; 85025; 85379; 85610; 85730; 86705; 86709; 86803; 87086; 87340; 87428; 87522; 93005; 96360; 96361; 99285; J7120